=== PATIENT | female | born 1945 | race Caucasian/White ===

== ENCOUNTER 2019-04-17 06:06 | Day surgery (SDC) | payer MEDICARE, OTHER, SELFPAY ==
[2019-04-16 15:06] VITALS: BMI 29.2
--- NOTE | 2019-04-17 06:42 | W.PM.OPSUD ---
Surgery/Procedure H&P Update DATE OF PROCEDURE: April 17, 2019 DATE H&P PERFORMED: 04/15/19 H&P UPDATE INFORMATION: I have reviewed H&P completed within last 30 days and I have examined patient prior to procedure PLANNED PROCEDURE: Operation Date: 04/17/19 07:20 Proposed Procedures p Colonoscopy(Not Applicable) - Felix Barajas MD
[2019-04-17 06:51] VITALS: BP 117/67; PULSE 63; RESP 20; TEMP 36.6; O2SAT 90
--- NOTE | 2019-04-17 07:16 | ANES.PREANE2 ---
Pre-Anesthetic Assessment Pre-Anesthetic Assessment: Height/Weight: Height 1.52 m Weight 68.039 kg Temp Pulse Resp BP Pulse Ox 97.8 F 63 20 H 117/67 90 04/17/19 06:51 04/17/19 06:51 04/17/19 06:51 04/17/19 06:51 04/17/19 06:51 Proposed Procedure: Operation Date: 04/17/19 07:20 Proposed Procedures p Colonoscopy(Not Applicable) - Felix Barajas MD Was Beta Mary Jane taken within 24 hours: Yes Last intake: Intake Last Liquid Date 04/16/19 Last Liquid Time 22:00 Last Solid Date 04/15/19 Last Solid Time 22:00 Social: Social History: No alcohol and No tobacco Exam: Pre-Anes Outpt Exam: alert, oriented x 3, clear to auscultation bilaterally and regular rate & rhythm Airway: Submandibular: WNL Cervical ROM: WNL MP: 2 Dentition: False History/ROS: No significant history except as noted and No significant complaints Pulmonary: Pulmonary: Asthma and Orthopnea CV/HEM: CV/HEM: HTN : : None reported Hepatic: Hepatic: None reported GI: GI: PUD Metabolic: Metabolic: Morbid obesity and Thyroid Musc/skel: Musc/skel: OA/DJD Neuropsych: Neuropsych: Anxiety and Depression Anesthetic Plan: ASA status: 3 Anesthesia: Anesthesia Evaluation and MAC Risk of > 500 ml blood loss (7ml/kg in children): No Data Anesthesia Cardiac Studies: No Data to Display
[2019-04-17 07:43] VITALS: BP 79/48; PULSE 72; RESP 16; TEMP 36.9; O2SAT 97
[2019-04-17] MEDS: sodium chloride 0.9% 1,000 ML 30 ML (07:47)
[2019-04-17 07:51] VITALS: BP 98/47; PULSE 63; RESP 18; O2SAT 100
== END 2019-04-17 08:10 | disposition home or self-care (01) ==
PROVIDERS: PCP Family Medicine; Visit Provider Surgery
PROC: 0DJD8ZZ Inspection of Lower Intestinal Tract, Via Natural or Artificial Opening Endoscopic (ICD-10-PCS; CPT 45378; principal; 2019-04-17 07:20)
DX: R19.4 Change in bowel habit (principal); R10.84 Generalized abdominal pain; R63.4 Abnormal weight loss; K63.89 Other specified diseases of intestine; K57.30 Diverticulosis of large intestine without perforation or abscess without bleeding; K64.8 Other hemorrhoids; Z68.29 Body mass index [BMI] 29.0-29.9, adult; M19.90 Unspecified osteoarthritis, unspecified site; K21.9 Gastro-esophageal reflux disease without esophagitis; I11.0 Hypertensive heart disease with heart failure; I50.9 Heart failure, unspecified; M79.7 Fibromyalgia; G47.30 Sleep apnea, unspecified; Z79.891 Long term (current) use of opiate analgesic; Z82.49 Family history of ischemic heart disease and other diseases of the circulatory system; Z83.3 Family history of diabetes mellitus; Z79.82 Long term (current) use of aspirin
CPT/HCPCS: 12345; 45378; J2704; J7030

== ENCOUNTER 2019-06-15 12:50 | Observation (INO) | payer MEDICARE, OTHER, SELFPAY ==
[2019-06-15] VITALS (7 sets, daily range): BP systolic 118–171; BP diastolic 56–80; PULSE 52–76; RESP 16–18; TEMP 36.4–36.9; O2SAT 93–100; BMI 26.9
--- NOTE | 2019-06-15 13:00 | XR_ITS ---
WS: [id number] XR chest 1V portable [id number] REASON FOR EXAM: cough FINDINGS: This study shows electrodes in the thoracic spine in good position for simulation. The heart is not enlarged there is arteriosclerotic changes in the arch the aorta The lung reis are well aerated. There is no pneumonia, pleural effusion, pulmonary edema, or mass e ffect. The hilum and apices normal. XR/XR chest 1V portable [id number] IMPRESSION: SCS electrodes noted in the thoracic spine in good position Arteriosclerotic changes No pneumonia There is evidence of anchor screws in the head of the right humerus.
--- NOTE | 2019-06-15 13:00 | PC.NURSE ---
Pt stated after triage that she had thyroid cancer with a thyroidectomy 6 weeks ago with plans to start chemo in the morning.
--- NOTE | 2019-06-15 13:01 | ECG_ITS ---
Measurements Intervals [place] Rate: 49 P: -47 SD: 187 QRS: 25 QRSD: 85 T: 51 QT: 464 QTc: [address] DEPRESSION [0.05+ mV ST DEPRESSION] No previous ECG available for comparison Electronically Signed On 06-15-2019 20:04:56 CDT by Ashok Case M.D. [email or web address]
[2019-06-15 13:11] LABS: Basophils % 0.1 %; Eosinophils # 0.1 10^3/uL (0.0-0.8); Eosinophils % 1.1 %; Hematocrit 31.8 % (37.0-47.0); Hemoglobin 10.7 g/dL (11.5-15.3); Lymphocytes # 3.4 10^3/uL (0.8-4.8); Lymphocytes % 38.4 %; Mean Corpuscular HGB Conc 33.6 g/dL (30.0-36.0); Mean Corpuscular Hemoglobin 30.8 pg (28.0-34.0); Mean Corpuscular Volume 91.6 fL (81-99); Mean Platelet Volume 12.2 fL (7.4-10.4); Monocytes # 0.8 10^3/uL (0.2-0.9); Monocytes % 9.5 %; Neutrophils # 4.5 10^3/uL (1.8-7.7); Neutrophils % 50.6 %; Nucleated Red Blood Cells % 0 %; Platelet Count 223 10^3/cmm (130-400); Red Blood Count 3.47 10^6/uL (4.1-5.3); Red Cell Distribution Width 15.9 % (12.1-15.1); White Blood Count 8.8 10^3/uL (4.0-10.0)
--- NOTE | 2019-06-15 13:14 | W.ED.SYNCOPE ---
HPI - Syncope General: Chief Complaint: Syncope Stated Complaint: Syncope Time Seen by Provider: 06/15/19 12:54 History of Present Illness: HPI narrative: Carleen is a nice 74-year-old female who comes in complaining of a syncopal spell. She states that she was playing piano when she suddenly felt lightheaded and started seeing flashing lights. It was noticed that she was leaning to the side and she was caught by friends so she did not hit her head or suffer any injuries. The patient states now she just feels somewhat fatigued. She denies chest pain, shortness of breath, nausea or vomiting, diaphoresis or any other symptoms. Of note the patient has recently had a complete thyroidectomy for thyroid cancer and is due to start chemotherapy tomorrow. Associated symptoms: Deny abdominal pain, chest pain, fever(s), headache(s), nausea or vertigo Review of Systems General: Reports: other (negative unless marked) Const: Reports: fatigue; Denies: fever, chills, body aches, malaise or diaphoresis Eyes: Denies: change in vision or blurry vision ENMT: Denies: throat pain, painful swallowing, hoarseness, ear pain, ear discharge, Change in hearing or nasal discharge Card: Reports: syncope; Denies: chest pain, palpitations, irregular heart rhythm, pre-syncope, shortness of breath on exertion or shortness of breath when lying down Resp: Denies: shortness of breath, productive cough, non-productive cough, wheezing, coughing up blood or chest congestion GI: Denies: abdominal pain, nausea, vomiting, vomiting blood, coffee grounds in vomit, diarrhea, constipation, cramping, blood in stool or black tarry stool : Denies: flank pain, painful urination, urinary frequency, urinary urgency, decreased urine ouput, urinary incontinence or blood in urine Musc: Denies: neck pain, back pain, extremity pain, extremity swelling, joint pain, joint swelling, joint warmth or joint stiffness Skin/Breast: Denies: rash, skin tenderness or yellow skin Neuro: Denies: headache, numbness in extremities, weakness in extremities, changes in sensation, lack of coordination, difficulty walking, dizziness, vertigo or confusion Endo: Denies: excessive thirst, tired all the time, cold intolerance, excessive sweating, flushing or hot flashes Franki/Lymph: Denies: easy bruising, easy bleeding, petechiae or enlarged lymph nodes All/Imm: Denies: hives, throat swelling, tongue swelling, facial swelling or acute wheezing PFSH ED PFSH: Medical History Congestive heart failure Fibromyalgia GERD (gastroesophageal reflux disease) Hypertension Hyponatremia Hypothyroidism Osteoarthritis Rheumatoid arthritis Spinal cord stimulator dysfunction TIA (transient ischemic attack) Surgical History H/O cardiac catheterization H/O hand surgery History of bilateral knee arthroplasty History of bladder surgery History of carpal tunnel release Hx of appendectomy S/P rotator cuff repair Social History Smoking and tobacco status: never smoked Physical Exam Const: COMMON NORMALS: no apparent distress, oriented x3, no limitations, healthy appearing and well nourished EXAM LIMITATIONS: no altered mental status GENERAL APPEARANCE: cooperative, well kempt and well developed ORIENTATION/CONSCIOUSNESS: Yes awake HENMT: COMMON NORMALS: normocephalic, head/scalp atraumatic, hearing grossly normal bilaterally, external ears normal, EAC's normal, external nose normal and moist oral mucous membranes HEAD & SCALP: normal to inspection, normocephalic and atraumatic FACE & SINUS: normal facial exam and face symmetric NOSE: external nose normal and nares normal EXTERNAL EAR: Yes external ears normal EXTERNAL AUDITORY CANAL: EAC's normal MOUTH: oral and palatal mucosa normal and tongue normal Eye: COMMON NORMALS: PERRL, EOMs intact bilaterally, conjunctivae normal and no scleral icterus GENERAL EYE: normal appearance of both eyes and normal light reflex CONJUNCTIVA: Yes conjunctivae normal SCLERA: sclerae normal CORNEA: Yes corneas normal PUPIL: Yes PERRL DIRECT OPHTHALMOSCOPY: Yes normal light reflex Neck/C-Spine: COMMON NORMALS: full ROM, no lymphadenopathy, supple, no meningeal signs and no JVD GENERAL: Yes normal visual inspection and Yes trachea midline CERVICAL SPINE: Yes cervical ROM normal Chest: COMMONS NORMALS: inspection of chest normal and palpation of chest normal Resp: COMMON NORMALS: normal respiratory effort, no retractions, no use of accessory muscles and clear to auscultation bilaterally EFFORT & INSPECTION: Yes able to speak in complete sentences AUSCULTATION: clear to auscultation bilaterally Cardio: COMMON NORMALS: no JVD, regular rate, regular rhythm, S1 normal heart sound, S2 normal heart sound, no gallops, no clicks, no murmurs and no rub JUGULAR VENOUS DISTENTION: no JVD RATE: regular rate RHYTHM: regular rhythm HEART SOUNDS: S1 normal and S2 normal GI: COMMON NORMALS: soft to palpation, non-tender, no hepatosplenomegaly and no masses INSPECTION: Yes normal to inspection PALPATION: Yes soft and Yes no hepatosplenomegaly : COMMON NORMALS: Yes no CVA tenderness BLADDER/KIDNEY EXAM: Yes no CVA tenderness Back/Pelvis: COMMON NORMALS: no CVA tenderness, thoracic and lumbar spine normal to inspection, no thoracic nor lumbar tenderness and thoraco-lumbar ROM normal Extremity: COMMON NORMALS: normal to inspection, full ROM, normal capillary refill, no joint enlargement, no clubbing, cyanosis or edema and no calf tenderness Neuro: COMMON NORMALS: oriented x3, CN's II-XII intact bilaterally, moves all extremities, no focal motor deficits and no sensory deficits noted MENINGEAL SIGNS: Yes no meningeal signs Psych: COMMON NORMALS: mental status grossly normal, thought process normal, cooperative, affect normal, speech normal and activity/motor behavior normal APPEARANCE: Yes well kempt SPEECH: Yes normal speech THOUGHT PROCESS: normal thought process Skin: COMMON NORMALS: no rashes or lesions noted, skin turgor normal, no jaundice, no petechiae and no mottling GENERAL SKIN EXAM: no rashes or lesions noted and turgor normal Course ED course: 1600 -on repeat examination of the patient's abdomen there is no evidence of cellulitis, crepitance, necrotizing fasciitis or otherwise. Vital Signs: Vital signs: Vital Signs Temperature 97.5 F L 06/15/19 12:59 Pulse Rate 60 06/15/19 13:01 Respiratory Rate 16 06/15/19 12:59 Blood Pressure 131/59 06/15/19 13:01 Pulse Oximetry 100 06/15/19 12:59 MDM - Syncope MDM Narrative: Medical decision making narrative: The case was reviewed with Dr. Marcos, he agrees to admit the patient. There is no sign of necrotizing fasciitis, the patient has a normal neurologic exam and she feels back to normal except for fatigue. I do not believe a head CT is indicated at this time. Patient's EKG is abnormal with bradycardia and with the syncope I believe she should be formally ruled out and have an echo. She will need her electrolytes rechecked and further monitoring. Lab Data: Attestation: I reviewed the patient's lab results. Labs: Lab Results 06/15/19 06/15/19 06/15/19 Range/Units 12:00 12:00 12:00 WBC 8.8 (4.0-10.0) 10^3/ uL RBC 3.47 L (4.1-5.3) 10^6/u L Hgb 10.7 L (11.5-15.3) g/dL Hct 31.8 L (37.0-47.0) % MCV 91.6 (81-99) fL MCH 30.8 (28.0-34.0) pg MCHC 33.6 (30.0-36.0) g/dL RDW 15.9 H (12.1-15.1) % Plt Count 223 (130-400) 10^3/c mm MPV 12.2 H (7.4-10.4) fL Neut % (Auto) 50.6 % Lymph % (Auto) 38.4 % Cedar % (Auto) 9.5 % Eos % (Auto) 1.1 % Baso % (Auto) 0.1 % Neut # (Auto) 4.5 (1.8-7.7) 10^3/u L Lymph # (Auto) 3.4 (0.8-4.8) 10^3/u L Cedar # (Auto) 0.8 (0.2-0.9) 10^3/u L Eos # (Auto) 0.1 (0.0-0.8) 10^3/u L Baso # (Auto) 0.0 (0.0-0.1) 10^3/u L Nucleated RBC % (a uto) 0 % Nucleated RBCs # 0.0 /100WBC D-Dimer (0-0.59) ug/mIFE U Sodium 136 (136-145) mmol/L Potassium 3.4 L (3.5-5.1) mmol/L Chloride 97 L (98-107) mmol/L Carbon Dioxide 25 (22-29) mmol/L Anion Gap 17.4 (5-19) BUN 9 (8-23) mg/dL Creatinine 0.8 (0.5-0.9) mg/dL Glucose 99 (65-115) mg/dL Calculated Osmolal ity 278 L (285-295) mOsm/k g Calcium 8.6 (8.5-10.5) mg/dL Magnesium 1.5 L (1.7-2.3) mg/dL Total Bilirubin 0.3 (0.15-1.2) mg/dL AST 43 H (0-32) U/L ALT 41 H (0-33) U/L Alkaline Phosphata se 47 (35-105) IU/L Troponin T Baselin e 20 H (0-10) ng/mL Troponin T 120 Min [place] (0-10) ng/mL Delta Troponin T (0-10) ABS# Total Protein 6.3 L (6.6-8.7) g/dL Albumin 4.0 (3.5-5.2) g/dL Globulin 2.3 (1.3-4.6) g/dL Urine Color (Yellow) Urine Appearance (CLEAR) Urine pH (5-7) Ur Specific Gravit y (1.005-1.030) Urine Protein (Negative) Urine Glucose (UA) (Normal) Urine Ketones (Negative) Urine Blood (Negative) Urine Nitrate (Negative) Urine Bilirubin (NEGATIVE) Urine Urobilinogen (Negative) mg/dL Ur Leukocyte Jillian ase (Negative) Urine RBC (0-2) /hpf Urine WBC (0-5) /hpf Ur Squamous Epith Cells (0-5) Urine Bacteria (NONE) 06/15/19 06/15/19 06/15/19 Range/Units 13:29 13:30 14:52 WBC (4.0-10.0) 10^3/ uL RBC (4.1-5.3) 10^6/u L Hgb (11.5-15.3) g/dL Hct (37.0-47.0) % MCV (81-99) fL MCH (28.0-34.0) pg MCHC (30.0-36.0) g/dL RDW (12.1-15.1) % Plt Count (130-400) 10^3/c mm MPV (7.4-10.4) fL Neut % (Auto) % Lymph % (Auto) % Cedar % (Auto) % Eos % (Auto) % Baso % (Auto) % Neut # (Auto) (1.8-7.7) 10^3/u L Lymph # (Auto) (0.8-4.8) 10^3/u L Cedar # (Auto) (0.2-0.9) 10^3/u L Eos # (Auto) (0.0-0.8) 10^3/u L Baso # (Auto) (0.0-0.1) 10^3/u L Nucleated RBC % (a uto) % Nucleated RBCs # /100WBC D-Dimer 1.95 H (0-0.59) ug/mIFE U Sodium (136-145) mmol/L Potassium (3.5-5.1) mmol/L Chloride (98-107) mmol/L Carbon Dioxide (22-29) mmol/L Anion Gap (5-19) BUN (8-23) mg/dL Creatinine (0.5-0.9) mg/dL Glucose (65-115) mg/dL Calculated Osmolal ity (285-295) mOsm/k g Calcium (8.5-10.5) mg/dL Magnesium (1.7-2.3) mg/dL Total Bilirubin (0.15-1.2) mg/dL AST (0-32) U/L ALT (0-33) U/L Alkaline Phosphata se (35-105) IU/L Troponin T Baselin e (0-10) ng/mL Troponin T 120 Min [place] 17.07 H (0-10) ng/mL Delta Troponin T -2.93 L (0-10) ABS# Total Protein (6.6-8.7) g/dL Albumin (3.5-5.2) g/dL Globulin (1.3-4.6) g/dL Urine Color Yellow (Yellow) Urine Appearance Clear (CLEAR) Urine pH 5 (5-7) Ur Specific Gravit y 1.005 (1.005-1.030) Urine Protein Neg (Negative) Urine Glucose (UA) Norm (Normal) Urine Ketones Negative (Negative) Urine Blood Neg (Negative) Urine Nitrate Negative (Negative) Urine Bilirubin Neg (NEGATIVE) Urine Urobilinogen Norm (Negative) mg/dL Ur Leukocyte Jillian ase Negative (Negative) Urine RBC None (0-2) /hpf Urine WBC Rare (0-5) /hpf Ur Squamous Epith Cells 5-10 H (0-5) Urine Bacteria Trace (NONE) Imaging Data^: CXR: My impression: No acute cardiopulmonary findings. CT Chest: Radiologist's impression: [facility] [address] [place] [address] CT Scan Report Signed Patient: Carleen Garcia Unit #: [id number] : 1945 Age/Sex: 74 / F ADM Date: 06/15/19 Loc: ER Room/Bed: Attending Dr: Ordering Provider/Ordering MD: Monae Turner DO Date of Service: 06/15/19 Procedure(s): CT angio chest w abd pel w con Accession Number(s): [id number] Report Number: [id number] PROCEDURE INFORMATION: Exam: CT Angiography Chest With Contrast Exam date and time: 06/15/2019 2:29 PM Age: 74 years old Clinical indication: Prior surgery; Surgery date: 1-6 months; Surgery type: Thyroid 6 wks ago, gb, appy, bladder, stim; Patient HX: C/O syncope episode; Additional info: Syncope, dyspnea TECHNIQUE: Imaging protocol: Computed tomographic angiography of the chest with intravenous contrast. 3D rendering: MIP and/or 3D reconstructed images were created by the technologist. Radiation optimization: All CT scans at this facility use at least one of these dose optimization techniques: automated exposure control; mA and/or kV adjustment per patient size (includes targeted exams where dose is matched to clinical indication); or iterative reconstruction. Contrast material: OMNI 350; Contrast volume: 95 ml; Contrast route: 20G; COMPARISON: CR XR chest 1V portable [id number] 06/15/2019 1:25 PM RADIATION DOSE METRICS: Total DLP: 1224.55 mGy-cm FINDINGS: Tubes, catheters and devices: There is a neurostimulator device. Pulmonary arteries: There is no pulmonary embolus. Aorta: There are moderate atherosclerotic changes in the aorta. No aneurysm or dissection. Lungs: Nonspecific bibasilar opacity is present, consistent with atelectasis, edema, or pneumonia. Pleural space: Unremarkable. No pneumothorax. No pleural effusion. Heart: There is mild cardiomegaly. Lymph nodes: Unremarkable. No enlarged lymph nodes. Bones/joints: There are old left rib fractures. No acute fracture. There are postoperative changes in the right shoulder. Chronic appearing fracture deformities of T6 and T7 are noted with kyphosis at this level. Soft tissues: Unremarkable. Other findings: There are calcified granulomas. There is also chronic appearing mild height loss of T3. IMPRESSION: 1. There is no pulmonary embolus. 2. Nonspecific bibasilar opacity is present, consistent with atelectasis, edema, or pneumonia. PROCEDURE INFORMATION: Exam: CT Abdomen And Pelvis With Contrast Exam date and time: 06/15/2019 2:29 PM Age: 74 years old Clinical indication: Prior surgery; Surgery date: 1-6 months; Surgery type: Thyroid 6 wks ago, gb, appy, bladder, stim; Patient HX: C/O syncope episode; Additional info: Syncope, dyspnea TECHNIQUE: Imaging protocol: Computed tomography of the abdomen and pelvis with intravenous contrast. Radiation optimization: All CT scans at this facility use at least one of these dose optimization techniques: automated exposure control; mA and/or kV adjustment per patient size (includes targeted exams where dose is matched to clinical indication); or iterative reconstruction. Contrast material: OMNI 350; Contrast volume: 95 ml; Contrast route: 20G; COMPARISON: CR XR chest 1V portable [id number] 06/15/2019 1:25 PM RADIATION DOSE METRICS: Total DLP: 1224.55 mGy-cm FINDINGS: Tubes, catheters and devices: There is a neurostimulator device with the battery pack posterior to the lower lumbar spine. Liver: Unremarkable.No mass. Gallbladder and bile ducts: There has been a cholecystectomy. There is no common bile duct dilation. Pancreas: Normal. No ductal dilation. Spleen: The spleen is normal. An accessory splenule is present. Adrenals: Normal. No mass. Kidneys and ureters: There is no evidence of hydronephrosis. There is no evidence of renal calcifications. Stomach and bowel: Moderate diverticulosis is present in the distal colon. There is no evidence of intestinal perforation or obstruction. There is no evidence of colitis/diverticulitis. Appendix: A normal appendix is identified. Intraperitoneal space: Unremarkable. No free air. No significant fluid collection. Vasculature: The aorta demonstrates moderate atherosclerotic calcification. Lymph nodes: Unremarkable.No enlarged lymph nodes. Bladder: There is nonspecific bladder wall thickening. This may be related to incomplete distention. Reproductive: The uterus, ovaries and adnexa are unremarkable in appearance. Bones/joints: There are moderate facet degenerative changes in the lower lumbar spine. There is chronic appearing mild height loss of L3. No acute bony fracture. Soft tissues: There is a fat-containing umbilical hernia. There is induration of the skin and subcutaneous fat of the lower abdominal wall. The appearance is concerning for cellulitis. No abscess or foreign body. There is subcutaneous emphysema/ gas in the subcutaneous fat. CT/CT angio chest w abd pel w con IMPRESSION: 1. There is induration of the subcutaneous fat and skin of the lower abdominal wall is concerning for cellulitis without abscess. There is subcutaneous emphysema 2. Otherwise, no additional acute intra-abdominal abnormality. No ileus or obstruction. No bowel thickening. No obstructing calculi. Radiation Dose CTDIVOL = (mGy): DLP = 1224.55 1224.55 (mGy-cm) Dictated By: Kady Call Signed By: Kady Call Signed Date/Time: 06/15/191536 DD/ 35 EKG Data^: EKG 1: Attestation: I personally reviewed and interpreted this EKG as follows: EKG interpretation date: 06/15/19 EKG interpretation time: 13:08 Interpretation: Sinus bradycardia with a heart rate of 49 beats a minute, nonspecific ST and T wave changes. EKG 2: Attestation: I personally reviewed and interpreted this EKG as follows: EKG interpretation date: 06/15/19 EKG interpretation time: 15:45 Interpretation: Normal sinus rhythm at 56 beats a minute, baseline artifact, no acute ST-T wave changes. Discharge Plan Discharge Patient Disposition: Placed in Observation Clinical Impression: Syncope Condition: Stable Prescriptions: No Action Vitamin B-12 2,500 mcg Tablet, Sublingual 2,500 mcg SUBLINGUAL DAILY RF: 0 trazodone 50 mg tablet 50 mg PO BEDTIME RF: 0 lisinopril 20 mg tablet 20 mg PO BID RF: 0 alendronate 70 mg tablet 70 mg PO Q7D RF: 0 aspirin 81 mg Tablet,Delayed Release (Dr/Ec) 162 mg PO DAILY RF: 0 pramipexole 0.5 mg tablet See Rx Instructions .ROUTE .COMPLEX RF: 0 alprazolam 0.5 mg tablet 0.5 mg PO BID RF: 0 Vitamin C 250 mg Tablet 250 mg PO DAILY RF: 0 pantoprazole 40 mg tablet,delayed release (DR/EC) 40 mg PO BID RF: 0 hydralazine 50 mg tablet 50 mg PO BID RF: 0 pravastatin 20 mg tablet 20 mg PO DAILY RF: 0 estradiol 0.5 mg tablet 0.5 mg PO DAILY RF: 0 epinephrine 0.3 mg/0.3 mL auto-injector See Rx Instructions .ROUTE .COMPLEX RF: 0 calcitriol 0.25 mcg capsule 0.25 mcg PO DAILY RF: 0 Synthroid 112 mcg tablet 112 mcg PO DAILY RF: 0 cyclobenzaprine 5 mg tablet 5 mg PO BEDTIME RF: 0 Vitamin D3 50 mcg (2,000 unit) Tablet 50 mcg PO DAILY RF: 0 isosorbide mononitrate 30 mg tablet extended release 24 hr 30 mg PO DAILY RF: 0 Referrals: Nae Guerin MD [Primary Care Provider] - Coding Level of Care Code ED Stencil Inspector for Chg Fwd Exam Comprehensive
[2019-06-15 13:34] LABS: Alanine Aminotransferase 41 U/L (0-33); Alkaline Phosphatase 47 IU/L (35-105); Anion Gap 17.4 (5-19); Aspartate Amino Transferase 43 U/L (0-32); Blood Urea Nitrogen 9 mg/dL (8-23); Calcium 8.6 mg/dL (8.5-10.5); Carbon Dioxide 25 mmol/L (22-29); Chloride 97 mmol/L (98-107); Globulin 2.3 g/dL (1.3-4.6); Glucose 99 mg/dL (65-115); Magnesium 1.5 mg/dL (1.7-2.3); Osmolality Calculated 278 mOsm/kg (285-295); Potassium 3.4 mmol/L (3.5-5.1); Sodium 136 mmol/L (136-145); Total Bilirubin 0.3 mg/dL (0.15-1.2); Total Protein 6.3 g/dL (6.6-8.7)
[2019-06-15 13:36] LABS: Troponin(5th) Baseline 20 ng/mL (0-10)
[2019-06-15 13:50] LABS: D Dimer 1.95 ug/mIFEU (0-0.59)
[2019-06-15 13:56] LABS: Bilirubin Urine Neg (NEGATIVE); Blood Urine Neg (Negative); Glucose Urine UA Norm (Normal); Ketones Urine Negative (Negative); Leukocyte Esterase Urine Negative (Negative); Nitrate Urine Negative (Negative); Protein Urine Neg (Negative); Specific Gravity, Urine 1.005 (1.005-1.030); Urine Appearance Clear (CLEAR); Urine Color Yellow (Yellow); Urobilinogen Urine Norm (Negative); pH Urine 5 (5-7)
--- NOTE | 2019-06-15 13:59 | CTR_ITS ---
PROCEDURE INFORMATION: Exam: CT Angiography Chest With Contrast Exam date and time: 06/15/2019 2:29 PM Age: 74 years old Clinical indication: Prior surgery; Surgery date: 1-6 months; Surgery type: Thyroid 6 wks ago, gb, appy, bladder, stim; Patient HX: C/O syncope episode; Additional info: Syncope, dyspnea TECHNIQUE: Imaging protocol: Computed tomographic angiography of the chest with intravenous contrast. 3D rendering: MIP and/or 3D reconstructed images were created by the technologist. Radiation optimization: All CT scans at this facility use at least one of these dose optimization techniques: automated exposure control; mA and/or kV adjustment per patient size (includes targeted exams where dose is matched to clinical indication); or iterative reconstruction. Contrast material: OMNI 350; Contrast volume: 95 ml; Contrast route: 20G; COMPARISON: CR XR chest 1V portable [id number] 06/15/2019 1:25 PM RADIATION DOSE METRICS: Total DLP: 1224.55 mGy-cm FINDINGS: Tubes, catheters and devices: There is a neurostimulator device. Pulmonary arteries: There is no pulmonary embolus. Aorta: There are moderate atherosclerotic changes in the aorta. No aneurysm or dissection. Lungs: Nonspecific bibasilar opacity is present, consistent with atelectasis, edema, or pneumonia. Pleural space: Unremarkable. No pneumothorax. No pleural effusion. Heart: There is mild cardiomegaly. Lymph nodes: Unremarkable. No enlarged lymph nodes. Bones/joints: There are old left rib fractures. No acute fracture. There are postoperative changes in the right shoulder. Chronic appearing fracture deformities of T6 and T7 are noted with kyphosis at this level. Soft tissues: Unremarkable. Other findings: There are calcified granulomas. There is also chronic appearing mild height loss of T3. IMPRESSION: 1. There is no pulmonary embolus. 2. Nonspecific bibasilar opacity is present, consistent with atelectasis, edema, or pneumonia. PROCEDURE INFORMATION: Exam: CT Abdomen And Pelvis With Contrast Exam date and time: 06/15/2019 2:29 PM Age: 74 years old Clinical indication: Prior surgery; Surgery date: 1-6 months; Surgery type: Thyroid 6 wks ago, gb, appy, bladder, stim; Patient HX: C/O syncope episode; Additional info: Syncope, dyspnea TECHNIQUE: Imaging protocol: Computed tomography of the abdomen and pelvis with intravenous contrast. Radiation optimization: All CT scans at this facility use at least one of these dose optimization techniques: automated exposure control; mA and/or kV adjustment per patient size (includes targeted exams where dose is matched to clinical indication); or iterative reconstruction. Contrast material: OMNI 350; Contrast volume: 95 ml; Contrast route: 20G; COMPARISON: CR XR chest 1V portable [id number] 06/15/2019 1:25 PM RADIATION DOSE METRICS: Total DLP: 1224.55 mGy-cm FINDINGS: Tubes, catheters and devices: There is a neurostimulator device with the battery pack posterior to the lower lumbar spine. Liver: Unremarkable.No mass. Gallbladder and bile ducts: There has been a cholecystectomy. There is no common bile duct dilation. Pancreas: Normal. No ductal dilation. Spleen: The spleen is normal. An accessory splenule is present. Adrenals: Normal. No mass. Kidneys and ureters: There is no evidence of hydronephrosis. There is no evidence of renal calcifications. Stomach and bowel: Moderate diverticulosis is present in the distal colon. There is no evidence of intestinal perforation or obstruction. There is no evidence of colitis/diverticulitis. Appendix: A normal appendix is identified. Intraperitoneal space: Unremarkable. No free air. No significant fluid collection. Vasculature: The aorta demonstrates moderate atherosclerotic calcification. Lymph nodes: Unremarkable.No enlarged lymph nodes. Bladder: There is nonspecific bladder wall thickening. This may be related to incomplete distention. Reproductive: The uterus, ovaries and adnexa are unremarkable in appearance. Bones/joints: There are moderate facet degenerative changes in the lower lumbar spine. There is chronic appearing mild height loss of L3. No acute bony fracture. Soft tissues: There is a fat-containing umbilical hernia. There is induration of the skin and subcutaneous fat of the lower abdominal wall. The appearance is concerning for cellulitis. No abscess or foreign body. There is subcutaneous emphysema/ gas in the subcutaneous fat. CT/CT angio chest w abd pel w con IMPRESSION: 1. There is induration of the subcutaneous fat and skin of the lower abdominal wall is concerning for cellulitis without abscess. There is subcutaneous emphysema 2. Otherwise, no additional acute intra-abdominal abnormality. No ileus or obstruction. No bowel thickening. No obstructing calculi. Radiation Dose CTDIVOL = (mGy): DLP = 1224.55~1224.55 (mGy-cm)
[2019-06-15] MEDS: potassium chloride oral liq 20 mEq/15 mL UDC 40 MEQ PO (14:08)
[2019-06-15] MEDS: magnesium sulfate premix 2 GM/50 ML PIGGYBACK IV (14:12)
[2019-06-15 14:17] LABS: Add Urine Culture? No; Bacteria Urine TRACE; WBC Urine RARE /hpf (0-5)
[2019-06-15] MEDS: iohexol 350 mg/mL 100 mL Btl IV (15:13)
[2019-06-15] MEDS: piperacillin-tazobactam 3.375 GM in sodium chloride 0.9% (plus) 50 ML IV (15:56)
[2019-06-15 15:58] LABS: Troponin 5 2HR 17.07 ng/mL (0-10)
[2019-06-15 16:06] LABS: Troponin 5 2HR Delta -2.93 ABS# (0-10)
--- NOTE | 2019-06-15 16:56 | P.HP_ITS ---
Providers/Chief Complaint Primary Care Provider: Nae Guerin MD Chief Complaint: Syncope History of Present Illness Carleen Garcia is a 74 year old female with a past medical history of rheumatoid arthritis (on chronic steroids, Xeljanz, methotrexate), immunocompromise state receives injections, chronic back pain with spinal stimulator in place, history of transient ischemic attack, hypertension, GERD, restless leg, hyperlipidemia, thyroid cancer status post thyroidectomy, fibromyalgia who presents to the emergency room due to syncopal episode. Patient states that she on May 29 had a thyroidectomy for thyroid cancer, she is set to have radiation therapy on June 15. She has been doing well since her surgical procedure, has remained indoors, no sick contacts, no recent fever, no cough, no sick contacts, did travel up to [place] for her surgery. She does report chronic palpitations. No chest pain. No significant cardiac history. No history of heart failure. No history of cardiac catheterization. Did have a history of 3 transient ischemic attacks. No history of lung disease. Notes does not smoke. No calf pain, no calf swelling. No hemoptysis. She does report intermittent lightheadedness, dizziness when changing positions. Patient states that this morning, nothing was out of the ordinary, she went to [employer], in [employer], she was playing the piano, she started to feel uneasy, felt lightheaded, her arms felt weak, bilaterally, she had flashes of color across her visual field, she said to the parents that she did not feel well and for people to pray for her, and that the last thing she remembers. According to secondhand accounts, patient passed out, she was caught by parishioners, she did not fall to the floors, she did not hit her head, no facial droop, no slurring of her speech, no focal neurologic deficits, no seizure-like activities, no urinary or bowel incontinence, the episode lasted about a minute, no post ictal confusion, she had generalized weakness, 2, and felt too weak to get off the floor, until EMS arrived and helped her off the floor. Denies previous episodes of syncope, but does state that she feels lightheaded and dizzy when changing positions at times. Review of Systems Const: Denies: fever, chills, fatigue or malaise Eyes: Reports: change in vision; Denies: blurry vision ENMT: Denies: nasal congestion Card: Reports: palpitations and syncope; Denies: chest pain, edema, shortness of breath on exertion or shortness of breath when lying down Resp: Denies: shortness of breath, productive cough, non-productive cough or wheezing GI: Denies: abdominal pain, nausea, vomiting, vomiting blood, diarrhea, constipation, blood in stool or black tarry stool : Denies: flank pain, painful urination or urinary frequency Musc: Denies: neck pain or back pain Skin/Breast: Denies: rash Neuro: Reports: dizziness; Denies: headache or vertigo Psych: Denies: anxiety or depression Endo: Denies: excessive urination or excessive thirst Medications/Allergies Home Medications Medication Instructions Recorded Confirmed Last Taken Type alendronate 70 mg PO Q7D 06/15/19 06/15/19 06/14/19 History alprazolam 0.5 mg PO BID 06/15/19 06/15/19 06/14/19 History ascorbic acid (vitamin C) [Vitamin 250 mg PO DAILY 06/15/19 06/15/19 Unknown History C] aspirin 162 mg PO DAILY 06/15/19 06/15/19 06/14/19 History calcitriol 0.25 mcg PO DAILY 06/15/19 06/15/19 06/15/19 History cholecalciferol (vitamin D3) 50 mcg PO DAILY 06/15/19 06/15/19 Unknown History [Vitamin D3] cyanocobalamin (vitamin B-12) 2,500 mcg SUBLINGUAL DAILY 06/15/19 06/15/19 Unknown History [Vitamin B-12] cyclobenzaprine 5 mg PO BEDTIME 06/15/19 06/15/19 Unknown History epinephrine See Rx Instructions .ROUTE .COMPLEX 06/15/19 06/15/19 Unknown History estradiol 0.5 mg PO DAILY 06/15/19 06/15/19 06/15/19 History hydralazine 50 mg PO BID 06/15/19 06/15/19 06/15/19 History isosorbide mononitrate 30 mg PO DAILY 06/15/19 06/15/19 06/15/19 History levothyroxine [Synthroid] 112 mcg PO DAILY 06/15/19 06/15/19 06/15/19 History lisinopril 20 mg PO BID 06/15/19 06/15/19 06/15/19 History pantoprazole 40 mg PO BID 06/15/19 06/15/19 06/15/19 History pramipexole See Rx Instructions .ROUTE .COMPLEX 06/15/19 06/15/19 06/14/19 History pravastatin 20 mg PO DAILY 06/15/19 06/15/19 06/14/19 History trazodone 50 mg PO BEDTIME 06/15/19 06/15/19 06/14/19 History Allergies Allergy/AdvReac Type Severity Reaction Status Date / Time codeine Allergy Severe unknown Verified 03/05/19 16:52 aspirin [From [facility]] Allergy ADR-Irritab Verified 06/15/19 12:58 le citric acid Allergy ADR-Irritab Verified 06/15/19 12:58 [From [facility]] le sodium bicarbonate Allergy ADR-Irritab Verified 06/15/19 12:58 [From [facility]] le Tetanus Vaccines and Toxoid Allergy ALGY-Hives Verified 06/15/19 12:58 Additional Medication Information Uses methotrexate weekly, prednisone 5 mg once daily, Xeljanz, immunoglobulin injections PFSH Acute PFSH: Medical History Congestive heart failure Fibromyalgia GERD (gastroesophageal reflux disease) Hypertension Hyponatremia Hypothyroidism Osteoarthritis Rheumatoid arthritis Spinal cord stimulator dysfunction TIA (transient ischemic attack) Surgical History H/O cardiac catheterization H/O hand surgery History of bilateral knee arthroplasty History of bladder surgery History of carpal tunnel release Hx of appendectomy S/P rotator cuff repair Social History Smoking and tobacco status: never smoked Vitals/I&O/Wt Last Vital Signs Temp 97.5 F L 06/15/19 12:59 Pulse 60 06/15/19 13:01 Resp 16 06/15/19 12:59 BP 131/59 06/15/19 13:01 Pulse Ox 100 06/15/19 12:59 Weight last 48 hrs Weight 65.771 kg Physical Exam Const: COMMON NORMALS: no apparent distress and oriented x3 GENERAL APPEARANCE: cooperative and comfortable HENMT: COMMON NORMALS: normocephalic HEAD & SCALP: normocephalic Eye: COMMON NORMALS: PERRL, EOMs intact bilaterally and no papilledema GENERAL EYE: normal appearance of both eyes PUPIL: Yes PERRL DIRECT OPHTHALMOSCOPY: Yes no papilledema Neck/C-Spine: COMMON NORMALS: full ROM, no lymphadenopathy, no JVD and thyroid normal THYROID: thyroid normal Lymph: LYMPHATIC: no lymphadenopathy noted Resp: COMMON NORMALS: normal respiratory effort, no retractions, no use of accessory muscles and clear to auscultation bilaterally AUSCULTATION: clear to auscultation bilaterally Cardio: COMMON NORMALS: no JVD, regular rate, regular rhythm, S1 normal heart sound, S2 normal heart sound, no gallops, no clicks and no murmurs RATE: regular rate RHYTHM: regular rhythm HEART SOUNDS: S1 normal and S2 normal GI: COMMON NORMALS: normal to inspection, nondistended, normoactive bowel shelly nds, soft to palpation, non-tender and no hepatosplenomegaly PALPATION: Yes soft and Yes no hepatosplenomegaly Extremity: COMMON NORMALS: normal to inspection, full ROM and no pedal edema Neuro: COMMON NORMALS: oriented x3, CN's II-XII intact bilaterally, moves all extremities and no focal motor deficits Psych: COMMON NORMALS: mental status grossly normal, thought process normal and cooperative THOUGHT PROCESS: normal thought process Data : 06/15/19 12:00 06/15/19 12:00 A&P Assessment and plan (1) Syncope: -This sounds like a true syncopal episode -Differential includes: Cardiac event, posterior circulation stroke, possible seizure, orthostatic hypotension Plan: -Admit to general medical floors -Serial EKGs, troponins, telemetry monitoring, monitor for chest pain -CT of the head, carotid ultrasound, cardiac echo -Orthostatic vitals -Neurochecks, seizure precautions -Continue aspirin, statin Status: Acute Qualifiers: Syncope type: unspecified Qualified Code(s): R55 - Syncope and collapse (2) Spinal cord stimulator dysfunction: Chronic back pain Status: Acute (3) Thyroid cancer: Status post thyroidectomy, 41 lymph node dissection on levothyroxine the rapy, is set to undergo radiation therapy Status: Acute (4) Rheumatoid arthritis: On Xeljanz, chronic steroids, methotrexate Status: Acute (5) Hypothyroidism: Status: Acute (6) Hypertension: Status: Acute (7) GERD (gastroesophageal reflux disease): Status: Acute (8) Osteoarthritis: Status: Acute (9) TIA (transient ischemic attack): Status: Acute Attestations Medical Necessity Statement*: Patient requires hospitalization, outpatient with observation, for syncopal episode Coding Level of Care Code 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
--- NOTE | 2019-06-15 17:37 | CTR_ITS ---
PROCEDURE INFORMATION: Exam: CT Head Without Contrast Exam date and time: 06/15/2019 5:56 PM Age: 74 years old Clinical indication: Syncope and collapse; Patient HX: Syncope episode TECHNIQUE: Imaging protocol: Computed tomography of the head without contrast. Radiation optimization: All CT scans at this facility use at least one of these dose optimization techniques: automated exposure control; mA and/or kV adjustment per patient size (includes targeted exams where dose is matched to clinical indication); or iterative reconstruction. COMPARISON: No relevant prior studies available. RADIATION DOSE METRICS: Total DLP: 719.81 mGy-cm FINDINGS: Brain: There is diffuse volume loss and periventricular low density compatible with small vessel disease changes. There is a linear hyperdensity in the left frontal lobe compatible with a draining vessel. The patient may have an underlying small vascular malformation. There is no acute hemorrhage, edema or mass effect. Ventricles: Normal. No ventriculomegaly. Bones/joints: Unremarkable. No acute fracture. Sinuses: Visualized sinuses are unremarkable. No fluid levels. Mastoid air cells: Visualized mastoid air cells are well aerated. Soft tissues: Unremarkable. CT/CT head wo con* [id number] IMPRESSION: 1. Prominent vessel in the left frontal lobe may reflect a draining vein from a incidental small vascular malformation. No hemorrhage. No edema or mass effect. 2. No acute intracranial abnormality. Radiation Dose CTDIVOL = (mGy): DLP = 719.81 (mGy-cm)
[2019-06-15] MEDS: atorvastatin 40 mg Tablet PO (18:50)
[2019-06-15] MEDS: enoxaparin 40 mg/0.4 mL Syringe SUBCUT (18:50)
[2019-06-15 18:51] LABS: Ferritin 401 ng/mL (15-150); Iron 84 ug/dL (37-145)
[2019-06-15] MEDS: pantoprazole DR 40 mg Tablet PO (18:51)
[2019-06-15] MEDS: ALPRAZolam 0.5 mg Tablet PO (18:51)
[2019-06-15] MEDS: lisinopril 20 mg Tablet PO (18:51)
[2019-06-15] MEDS: hyDRALAzine 50 mg Tablet PO (18:51)
[2019-06-15 19:00] LABS: Thyroid Stimulating Hormone 0.25 uIU/mL (0.27-4.20)
--- NOTE | 2019-06-15 19:01 | ECG_ITS ---
Measurements Intervals [place] Rate: 56 P: 267 DE: 171 QRS: 24 QRSD: 94 T: 13 QT: 457 QTc: 442 ECTOPIC ATRIAL BRADYCARDIA MODERATE ST DEPRESSION [0.05+ mV ST DEPRESSION] No previous ECG available for comparison Electronically Signed On 06-15-2019 20:17:05 CDT by Ashok Case M.D. [email or web address]
[2019-06-15 19:12] LABS: Percent Saturation 34.4 % (20-50); Total Iron Binding Capacity 244 mcg/dl; Unsaturated Iron Binding 160 ug/dL (112-347)
[2019-06-15 19:23] LABS: Troponin 5 6HR 16.82 ng/mL (0-10)
[2019-06-15 19:24] LABS: Troponin 5 6HR Delta -3.18 ng/L (0-12)
[2019-06-15] MEDS: pramipexole 0.25 mg Tablet 0.75 MG PO (21:15)
[2019-06-15] MEDS: cyclobenzaprine 10 mg Tablet 5 MG PO (21:15)
[2019-06-15] MEDS: trazodone 50 mg Tablet PO (21:15)
[2019-06-16] VITALS (9 sets, daily range): BP systolic 103–144; BP diastolic 59–72; PULSE 69–92; RESP 16–18; TEMP 36.5–36.8; O2SAT 92–95
[2019-06-16 05:55] LABS: Basophils % 0.1 %; Eosinophils # 0.1 10^3/uL (0.0-0.8); Hematocrit 33.7 % (37.0-47.0); Hemoglobin 11.2 g/dL (11.5-15.3); Lymphocytes # 2.6 10^3/uL (0.8-4.8); Lymphocytes % 37.7 %; Mean Corpuscular HGB Conc 33.2 g/dL (30.0-36.0); Mean Corpuscular Hemoglobin 31.3 pg (28.0-34.0); Mean Corpuscular Volume 94.1 fL (81-99); Mean Platelet Volume 11.4 fL (7.4-10.4); Monocytes # 0.5 10^3/uL (0.2-0.9); Monocytes % 7.6 %; Neutrophils # 3.6 10^3/uL (1.8-7.7); Neutrophils % 53.3 %; Nucleated Red Blood Cells % 0 %; Platelet Count 201 10^3/cmm (130-400); Red Blood Count 3.58 10^6/uL (4.1-5.3); White Blood Count 6.8 10^3/uL (4.0-10.0)
--- NOTE | 2019-06-16 06:00 | USCV_ITS ---
Carleen Garcia Age: 74 Gender: F : 1945 Exam Date: 06/16/2019 05:58 Ordering Phys: Stephon Marcos MD Technologist: Mily Swain [place] [facility] [place]: SYNCOPE BP: 136 / 70 HR: 66 Rhythm: Sinus Technical Quality: Adequate MEASUREMENTS (Male / Female) Normal Values 2D ECHO LV Diastolic Diameter PLAX 3.9 cm 4.2 - 5.9 / 3.9 - 5.3 cm LV Systolic Diameter PLAX 2.5 cm LV Chamber Size 2.8 cm IVS Diastolic Thickness 1.1 cm 0.6 - 1.0 / 0.6 - 0.9 cm IVS Systolic Thickness 1.5 cm LVPW Diastolic Thickness 1.5 cm 0.6 - 1.0 / 0.6 - 0.9 cm LVPW Systolic Thickness 1.3 cm RV Chamber Size 2.8 cm LVOT Diameter 2.0 cm LV Ejection Fraction 2D Teich 65.7 % LV Ejection Fraction MOD 2C 36.0 % LV Ejection Fraction 2C AL 45.6 % LA Diameter 4.0 cm LA Width 2.2 cm LA Height 3.8 cm RA Width 3.4 cm RA Height 3.5 cm Aorta at Sinotubular Diameter 2.0 cm M-MODE LV Diastolic Diameter MM 4.0 cm 4.2 - 5.9 / 3.9 - 5.3 cm LV Systolic Diameter MM 2.5 cm LV Ejection Fraction MM Teich 67.7 % IVS Diastolic Thickness MM 1.3 cm 0.6 - 1.0 / 0.6 - 0.9 cm IVS Systolic Thickness MM 1.3 cm LVPW Diastolic Thickness MM 1.1 cm 0.6 - 1.0 / 0.6 - 0.9 cm LVPW Systolic Thickness MM 1.4 cm RV Diastolic Diameter MM 1.4 cm Aortic Annulus Diameter 2.7 cm LA Ao Ratio MM 1.5 MV E Point Septal Separation 0.5 cm DOPPLER AV Peak Velocity 127.0 cm/s LVOT Peak Velocity 92.0 cm/s AV Area Cont Eq vti 2.4 cm squared AV Area Cont Eq pk 2.3 cm squared MV Area PHT 3.1 cm squared Mitral E to A Ratio 1.0 MV E' Velocity 5.0 cm/s Mitral E to MV E' Ratio 19.5 Mitral E to LV E' Lateral Ratio 21.4 Mitral E to LV E' Septal Ratio 18.3 TR Peak Velocity 268.6 cm/s TR Peak Gradient 28.9 mmHg TR Mean Velocity 196.1 cm/s TR Mean Gradient 17.7 mmHg TR Velocity Time Integral 89.0 cm TV Peak E Velocity 56.0 cm/s Right Atrial Pressure 3.0 mmHg Pulmonary Artery Systolic Pressu 31.9 mmHg PV Peak Velocity 64.0 cm/s RV Acceleration Time 0.1 s RV Ejection Time 0.3 s RV AcT/ET 0.3 FINDINGS Left Ventricle Normal left ventricular cavity size. Normal left ventricular systolic function. No regional wall motion abnormalities. Left ventricular ejection fraction is estimated at 67%. Grade I/IV diastolic dysfunction (abnormal relaxation filling pattern), normal to mildly elevated filling pressures. Right Ventricle The right ventricle is normal in size and function. Right Atrium The right atrium is normal in size. Left Atrium The left atrium is normal in size. Mitral Valve Moderately thickened mitral valve. Moderate mitral annular calcification. No mitral valve stenosis. No mitral valve regurgitation. Aortic Valve Moderate aortic valve calcification. No aortic valve stenosis. No aortic valve regurgitation. Tricuspid Valve Structurally normal tricuspid valve without significant stenosis or regurgitation. Pulmonary artery systolic pressure is normal. Pulmonic Valve Structurally normal pulmonic valve without significant stenosis. There is no pulmonic regurgitation. Pericardium Normal pericardium without effusion. Aorta Normal ascending aorta dimension. CONCLUSIONS 1-Normal left ventricular cavity size. Normal left ventricular systolic function. No regional wall motion abnormalities. Left ventricular ejection fraction is estimated at 67%. Grade I/IV diastolic dysfunction (abnormal relaxation filling pattern), normal to mildly elevated filling pressures. 2-Moderately thickened mitral valve. Moderate mitral annular calcification. No mitral valve stenosis. No mitral valve regurgitation. 3-No significant valve abnormalities. 4-There is no pericardial effusion. 5-Pulmonary artery systolic pressure is within normal limits. 6-Right atrial pressure is around 5 mm of mercury. 7-No significant change since the prior echocardiogram study of 08/28/2017. Lydia Florentino MD (Electronically Signed) Final Date: 16 Jun 2019 15:35 S
--- NOTE | 2019-06-16 06:00 | USCV_ITS ---
Carleen Garcia Age: 74 Gender: F : 1945 Exam Date: 06/16/2019 06:13 Ordering Phys: Stephon Marcos MD Technologist: Mily Swain Exam Location: [facility] – [place] Indication: SYNCOPE X 1 Risk Factors: Unknown Previous Vascular Surgery: None Right Brachial BP: / Left Brachial BP: / Right Left Velocity (cm/s) Spectral Plaque Velocity (cm/s) Spectral Plaque Syst/Diast Broadening Syst/Diast Broadening 135.60/19.80 Prox CCA 190.70/ 43.70 119.10/18.70 Hetro Mid CCA 130.00/ 21.70 Hetro 87.10/ 14.30 Hetro Distal CCA 143.00/ 19.90 Hetro 97.00/ 22.10 Hetro Prox ICA 85.50 / 17.30 Hetro 110.30/17.60 Mid ICA 82.70 / 17.30 130.00/37.90 Distal ICA 105.70/ 22.10 110.30 Hetro ECA 98.90 Hetro 1.09 ICA/CCA 0.81 Antegrade Vertebral Antegrade 34.40/ 10.30 cm/s 62.50/ 10.60 cm/s Tri Subclavian Bi 158.8 228.4 0 0 FINDINGS Comparison: none available. Diffuse bilateral scattered calcified plaque and intimal thickening throughout the common carotid arteries and extending through the bifurcation. Mild elevation of evelocity and spectral broadening. CONCLUSIONS Bilateral ICA stenosis less than 50%. Diffuse bilateral atherosclerosis. Dr. Jennifer Covarrubias DO (Electronically Signed) Final Date: 16 Jun 2019 15:13 S
[2019-06-16 06:07] LABS: Alanine Aminotransferase 39 U/L (0-33); Albumin Level 3.7 g/dL (3.5-5.2); Alkaline Phosphatase 47 IU/L (35-105); Anion Gap 16.7 (5-19); Aspartate Amino Transferase 41 U/L (0-32); Blood Urea Nitrogen 10 mg/dL (8-23); Calcium 8.5 mg/dL (8.5-10.5); Carbon Dioxide 25 mmol/L (22-29); Chloride 99 mmol/L (98-107); Cholesterol 195 mg/dL (0-200); Globulin 2.9 g/dL (1.3-4.6); Glucose 95 mg/dL (65-115); HDL Cholesterol 30 mg/dL (60-100); LDL Cholesterol Calculated 129 mg/dL (50-129); Magnesium 2.2 mg/dL (1.7-2.3); Osmolality Calculated 280 mOsm/kg (285-295); Phosphorus 3.1 mg/dL (2.5-4.5); Potassium 3.7 mmol/L (3.5-5.1); Sodium 137 mmol/L (136-145); Total Bilirubin 0.4 mg/dL (0.15-1.2); Total Protein 6.6 g/dL (6.6-8.7); Triglycerides 182 mg/dL (0-150)
[2019-06-16 06:23] LABS: Estmated Average Glucose 117; Hemoglobin A1C 5.7 % (4.0-6.0)
[2019-06-16] MEDS: hyDRALAzine 50 mg Tablet PO (09:07)
[2019-06-16] MEDS: ALPRAZolam 0.5 mg Tablet PO (09:07)
[2019-06-16] MEDS: atorvastatin 40 mg Tablet PO (09:07)
[2019-06-16] MEDS: calcitriol 0.25 mcg Capsule PO (09:07)
[2019-06-16] MEDS: levothyroxine 112 mcg Tablet PO (09:07)
[2019-06-16] MEDS: aspirin 81 mg EC Tablet PO (09:08)
[2019-06-16] MEDS: isosorbide mononitrate ER 30 mg Tablet PO (09:08)
[2019-06-16] MEDS: pantoprazole DR 40 mg Tablet PO (09:08)
[2019-06-16] MEDS: lisinopril 20 mg Tablet PO (09:08)
[2019-06-16] MEDS: ascorbic acid 500 mg Tablet 250 MG PO (09:09)
[2019-06-16] MEDS: estradiol 1 mg Tablet 0.5 MG PO (09:38)
--- NOTE | 2019-06-16 10:32 | PC.CHAP ---
Pastoral Care Encounter/Spiritual Assessment Type of Contact [] Declined billing services manager visit [] Patient/Family/Request visit [] Outpatient visit [] Follow-up visit [] Physician referral [] Code/Alert [] Routine visit [] Staff referral [] Actively dying [] Patient sleeping [] Family support [] [x] Out of room [] Palliative care [] [] Receiving care in room [] Pre-surgical visit [] Trauma [] Long length of stay [] ICU visit [] Other: Relational/Emotional Strength [] Patient feels connected with others/family/visitors/staff [] Distress [] Loneliness/isolation [] Abandonment Spirituality of Patient [] Person of Laureen [] Attends Roman Catholic of their Laureen [] Believes in Prayer [] Reads Bible or Baptist materials [] There are Spiritual issues to be addressed Active Directory Engineer Interventions [] Prayer [] Active listening [] Non-anxious presence [] Spiritual/emotional support [] Crisis/trauma care [] Spiritual counseling [] Bereavement support [] Provided bereavement packet [] Provided Bible/devotional materials [] Provided toy/stuffed animal, coloring book to patient or family member [] Provided Communion [] Anointing/[place] [] Salvation [x] Completed spiritual assessment [] Other: Impact on Illness or Injury [] Angry [] Fearful [] Anxious [] Often cries [] Exhaustion [] Unable to work [] Unable to attend anabaptist [] Unable to walk/stand [] Unable to read [] Unable to drive [] Unable to eat/drink [] Unable to sleep [] Unable to be with family [] Patient intubated [] Other: Summary Patient out for Stress testing Time spent with patient
--- NOTE | 2019-06-16 15:47 | PM.DCS ---
Discharge Providers Date of Admission: 06/15/19 16:41 Date of Discharge: June 16, 2019 Attending Provider at Admission: Stephon Marcos MD Attending Provider at Discharge: Stephon Marcos MD Primary Care Provider: Nae Guerin MD Diagnoses at Discharge Discharge Diagnosis (1) Syncope: Status: Acute Qualifiers: Syncope type: unspecified Qualified Code(s): R55 - Syncope and collapse (2) Spinal cord stimulator dysfunction: Status: Acute (3) Thyroid cancer: Status: Acute (4) Rheumatoid arthritis: Status: Acute (5) Hypothyroidism: Status: Acute (6) Hypertension: Status: Acute (7) GERD (gastroesophageal reflux disease): Status: Acute (8) Osteoarthritis: Status: Acute (9) TIA (transient ischemic attack): Status: Acute Reason for Visit Reason for Visit: Reason For Visit: Syncope Hospital Course Discharge Summary: Carleen Garcia is a 74 year old female with a past medical history of rheumatoid arthritis (on chronic steroids, Xeljanz, methotrexate), immunocompromise state receives injections, chronic back pain with spinal stimulator in place, history of transient ischemic attack, hypertension, GERD, restless leg, hyperlipidemia, thyroid cancer status post thyroidectomy, fibromyalgia who presents to the emergency room due to syncopal episode. Patient states that she on May 29 had a thyroidectomy for thyroid cancer, she is set to have radiation therapy on June 15. She has been doing well since her surgical procedure, has remained indoors, no sick contacts, no recent fever, no cough, no sick contacts, did travel up to [place] for her surgery. She does report chronic palpitations. No chest pain. No significant cardiac history. No history of heart failure. No history of cardiac catheterization. Did have a history of 3 transient ischemic attacks. No history of lung disease. Notes does not smoke. No calf pain, no calf swelling. No hemoptysis. She does report intermittent lightheadedness, dizziness when changing positions. Patient states that this morning, nothing was out of the ordinary, she went to baptism, in baptism, she was playing the piano, she started to feel uneasy, felt lightheaded, her arms felt weak, bilaterally, she had flashes of color across her visual field, she said to the parents that she did not feel well and for people to pray for her, and that the last thing she remembers. According to secondhand accounts, patient passed out, she was caught by parishioners, she did not fall to the floors, she did not hit her head, no facial droop, no slurring of her speech, no focal neurologic deficits, no seizure-like activities, no urinary or bowel incontinence, the episode lasted about a minute, no post ictal confusion, she had generalized weakness, 2, and felt too weak to get off the floor, until EMS arrived and helped her off the floor. Denies previous episodes of syncope, but does state that she feels lightheaded and dizzy when changing positions at times. Patient was admitted syncopal event, her orthostatics were within normal limits, patient's head CT patient's was negative for intracranial hemorrhage or acute CVA, carotid ultrasound bilateral ICA stenosis less than 50%; cardiac echo showed left ventricular ejection fraction 67%, grade 1 out of 4 diastolic dysfunction, no significant wall motion abnormalities. CTA of the chest negative for pulmonary embolism. Patient remained neurologically intact, no significant seizure-like episodes. Patient's telemetry monitoring did show 5-6 beats of nonsustained V. tach, patient was asymptomatic during that time. Patient was discharged on a 30-day event monitor, with close follow-up with Dr. Costello in 1 week, with a follow-up with primary care provider in 1 month. Patient was advised that if she were to have chest pain, palpitations, lightheadedness, dizziness, or another syncopal episode to come back to the emergency room. Physical Exam Const: COMMON NORMALS: no apparent distress and oriented x3 HENMT: COMMON NORMALS: normocephalic HEAD & SCALP: normocephalic Neck/C-Spine: COMMON NORMALS: no JVD Resp: COMMON NORMALS: normal respiratory effort, no retractions, no use of accessory muscles and clear to auscultation bilaterally AUSCULTATION: clear to auscultation bilaterally Cardio: COMMON NORMALS: no JVD, regular rate, regular rhythm, S1 normal heart sound and S2 normal heart sound RATE: regular rate RHYTHM: regular rhythm HEART SOUNDS: S1 normal and S2 normal GI: COMMON NORMALS: normal to inspection, nondistended, normoactive bowel sounds, soft to palpation, non-tender, no hepatosplenomegaly, no masses and no bruits PALPATION: Yes soft and Yes no hepatosplenomegaly Extremity: COMMON NORMALS: normal capillary refill, no clubbing, cyanosis or edema, no calf tenderness and no pedal edema Neuro: COMMON NORMALS: oriented x3 Psych: COMMON NORMALS: mental status grossly normal Discharge Data Data Completed and Pending: Completed Studies During Hospitalization Category Date Time Status CT angio chest w abd pel w con Stat Cat Scan 06/15/19 13:[address] head wo con* [id number] Urgent Cat Scan 06/15/19 17:37 Completed XR chest 1V raji ble [id number] Stat Exams 06/15/19 13:00 Completed CV carotid duplex BI* [id number] Routine Ultrasound 06/16/19 06:00 Completed CV echo complete* [id number] Routine Ultrasound 06/16/19 06:00 Completed Pending at discharge Category Date Time Status Complete Blood Co unt w/Auto AM LABS Lab 06/17/19 04:00 Ordered Complete Blood Co unt w/Auto AM LABS Lab 06/18/19 04:00 Ordered Comprehensive Met abolic Panel AM LA BS Lab 06/17/19 04:00 Ordered Comprehensive Met abolic Panel AM LA BS Lab 06/18/19 04:00 Ordered Magnesium AM LABS Lab 06/17/19 04:00 Ordered Magnesium AM LABS Lab 06/18/19 04:00 Ordered Phosphorus AM LAB S Lab 06/17/19 04:00 Ordered Phosphorus AM LAB S Lab 06/18/19 04:00 Ordered Labs from last 24 hours 06/16/19 06/16/19 06/16/19 05:31 05:31 05:31 WBC RBC Hgb Hct MCV MCH MCHC RDW Plt Count MPV Neut % (Auto) Lymph % (Auto) [place] % (Auto) Eos % (Auto) Baso % (Auto) Reticulocyte % (Au to) Neut # (Auto) Lymph # (Auto) [place] # (Auto) Eos # (Auto) Baso # (Auto) Nucleated RBC % (a uto) Nucleated RBCs # Sodium 137 Potassium 3.7 Chloride 99 Carbon Dioxide 25 Anion Gap 16.7 BUN 10 Creatinine 0.9 Glucose 95 Estimat Average Gl ucose 117 Hemoglobin A1c 5.7 Calculated Osmolal ity 280 L Calcium 8.5 Phosphorus 3.1 Magnesium 2.2 Iron TIBC % Saturation Unsat Iron Binding Ferritin Total Bilirubin 0.4 AST 41 H ALT 39 H Alkaline Phosphata se 47 Troponin I 6 Hour Troponin I Hi Sens Del Troponin T 120 Min [place] Troponin T Total Protein 6.6 Albumin 3.7 Globulin 2.9 Triglycerides 182 H Cholesterol 195 LDL Cholesterol, C alc 129 HDL Cholesterol 30 L LDL/HDL Ratio 4.30 H Cholesterol/HDL Ra blank 6.50 H TSH 06/16/19 06/15/19 06/15/19 05:31 18:58 14:52 WBC 6.8 RBC 3.58 L Hgb 11.2 L Hct 33.7 L MCV 94.1 MCH 31.3 MCHC 33.2 RDW 16.0 H Plt Count 201 MPV 11.4 H Neut % (Auto) 53.3 Lymph % (Auto) 37.7 [place] % (Auto) 7.6 Eos % (Auto) 1.0 Baso % (Auto) 0.1 Reticulocyte % (Au to) Neut # (Auto) 3.6 Lymph # (Auto) 2.6 [place] # (Auto) 0.5 Eos # (Auto) 0.1 Baso # (Auto) 0.0 Nucleated RBC % (a uto) 0 Nucleated RBCs # 0.0 Sodium Potassium Chloride Carbon Dioxide Anion Gap BUN Creatinine Glucose Estimat Average Gl ucose Hemoglobin A1c Calculated Osmolal ity Calcium Phosphorus Magnesium Iron TIBC % Saturation Unsat Iron Binding Ferritin Total Bilirubin AST ALT Alkaline Phosphata se Troponin I 6 Hour 16.82 H Troponin I Hi Sens Del -3.18 L Troponin T 120 Min [place] 17.07 H Delta Troponin T -2.93 L Total Protein Albumin Globulin Triglycerides Cholesterol LDL Cholesterol, C alc HDL Cholesterol LDL/HDL Ratio Cholesterol/HDL Ra blank TSH 06/15/19 06/15/19 06/15/19 12:00 12:00 12:00 WBC RBC Hgb Hct MCV MCH MCHC RDW Plt Count MPV Neut % (Auto) Lymph % (Auto) [place] % (Auto) Eos % (Auto) Baso % (Auto) Reticulocyte % (Au to) 2.1300 Neut # (Auto) Lymph # (Auto) [place] # (Auto) Eos # (Auto) Baso # (Auto) Nucleated RBC % (a uto) Nucleated RBCs # Sodium Potassium Chloride Carbon Dioxide Anion Gap BUN Creatinine Glucose Estimat Average Gl ucose Hemoglobin A1c Calculated Osmolal ity Calcium Phosphorus Magnesium Iron 84 TIBC 244 % Saturation 34.4 Unsat Iron Binding 160 Ferritin 401 H Total Bilirubin AST ALT Alkaline Phosphata se Troponin I 6 Hour Troponin I Hi Sens Del Troponin T 120 Min [place] Troponin T Total Protein Albumin Globulin Triglycerides Cholesterol LDL Cholesterol, C alc HDL Cholesterol LDL/HDL Ratio Cholesterol/HDL Ra blank TSH 0.25 L Vitals: Last Vital Signs Temp 98.0 F 06/16/19 11:30 Pulse 89 06/16/19 14:15 Resp 16 06/16/19 11:30 BP 103/59 06/16/19 11:30 Pulse Ox 95 06/16/19 14:15 Discharge Plan Discharge Patient Disposition: Home, Self-Care Condition: Stable Prescriptions: New aspirin 81 mg Tablet,Delayed Release (Dr/Ec) 81 mg PO DAILY 30 Days Qty: 30 RF: 0 Continued Vitamin B-12 2,500 mcg Tablet, Sublingual 2,500 mcg SUBLINGUAL DAILY RF: 0 trazodone 50 mg tablet 50 mg PO BEDTIME RF: 0 lisinopril 20 mg tablet 20 mg PO BID RF: 0 alendronate 70 mg tablet 70 mg PO Q7D RF: 0 pramipexole 0.5 mg tablet See Rx Instructions .ROUTE .COMPLEX RF: 0 alprazolam 0.5 mg tablet 0.5 mg PO BID RF: 0 Vitamin C 250 mg Tablet 250 mg PO DAILY RF: 0 pantoprazole 40 mg tablet,delayed release (DR/EC) 40 mg PO BID RF: 0 hydralazine 50 mg tablet 50 mg PO BID RF: 0 pravastatin 20 mg tablet 20 mg PO DAILY RF: 0 estradiol 0.5 mg tablet 0.5 mg PO DAILY RF: 0 epinephrine 0.3 mg/0.3 mL auto-injector See Rx Instructions .ROUTE .COMPLEX RF: 0 calcitriol 0.25 mcg capsule 0.25 mcg PO DAILY RF: 0 Synthroid 112 mcg tablet 112 mcg PO DAILY RF: 0 cyclobenzaprine 5 mg tablet 5 mg PO BEDTIME RF: 0 Vitamin D3 50 mcg (2,000 unit) Tablet 50 mcg PO DAILY RF: 0 isosorbide mononitrate 30 mg tablet extended release 24 hr 30 mg PO DAILY RF: 0 Discontinued aspirin 81 mg Tablet,Delayed Release (Dr/Ec) 162 mg PO DAILY RF: 0 Discharge Orders: Discharge Order (Routine); Ordered 06/16/19 Ordered By: Stephon Marcos Other Ambulatory Orders: [place] 30 day event monitor (Routine) Timeframe: 1 Day Facility: [facility] - Location: Cardiac Diagnostic Laboratory Ordered By: Stephon Marcos Referrals: Nae Guerin MD [Primary Care Provider] - 06/23/19 10:30 am Lydia Florentino MD [Physician] - 06/23/19 1:00 pm Discharge Diet: Cardiac Discharge Activity: Resume usual activity Patient Instructions: Syncope (DC) Activity Restrictions/Additional Instructions: -Please follow-up with Dr. Costello in 1 week -If you feel lightheaded or dizzy please come back to the emergency room Discharge Attestations Time Spent in Discharge Care*: less than 30 min Quality Metrics Clinical Quality Measures During this hospital stay, did patient experience: None Coding Level of Care Code Acute Furniture Duster for Chg Fwd Exam Comprehensive Diagnoses Syncope R55 Syncope type: unspecified Spinal cord stimulator dysfunction T85.192A Thyroid cancer C73 Rheumatoid arthritis M06.9 Hypothyroidism E03.9 Hypertension I10 GERD (gastroesophageal reflux disease) K21.9 Osteoarthritis M19.90 TIA (transient ischemic attack) G45.9
== END 2019-06-16 17:30 | disposition home or self-care (01) ==
LOC: ER 17:01 → MEDSURG 17:18
PROVIDERS: Admitting Provider Family Medicine; Emergency Provider Emergency Medicine; PCP Family Medicine; Visit Provider Family Medicine
DX: R55 Syncope and collapse (principal); T85.192A Other mechanical complication of implanted electronic neurostimulator of spinal cord electrode (lead), initial encounter; C73 Malignant neoplasm of thyroid gland; M06.9 Rheumatoid arthritis, unspecified; E03.9 Hypothyroidism, unspecified; K21.9 Gastro-esophageal reflux disease without esophagitis; M19.90 Unspecified osteoarthritis, unspecified site; G45.9 Transient cerebral ischemic attack, unspecified; Z79.52 Long term (current) use of systemic steroids; E78.5 Hyperlipidemia, unspecified; M79.7 Fibromyalgia; Z79.82 Long term (current) use of aspirin; I11.0 Hypertensive heart disease with heart failure; I50.9 Heart failure, unspecified
CPT/HCPCS: 12345; 36415; 70450; 71045; 71275; 74177; 80053; 80061; 81001; 82728; 83036; 83540; 83550; 83735; 84100; 84443; 84484; 85025; 85045; 85378; 93005; 93306; 93880; 96365; 96367; 96372; 97110; 97161; 97165; 97530; 99284; 99285; G0378; J1650; J2543; J3370; J3475; J7050; J8499; Q9967

== ENCOUNTER 2019-08-06 06:00 | Outpatient (RCR) | payer MEDICARE, OTHER, SELFPAY | END 2019-09-05 23:59 | disposition home or self-care (01) | LOC: WST 06:00 | PROVIDERS: PCP Family Medicine; Referring Provider Otolaryngology; Visit Provider Family Medicine | DX: E89.0 Postprocedural hypothyroidism (principal); R49.0 Dysphonia | CPT/HCPCS: 92507; 92524; 92526; 92610 ==

== ENCOUNTER 2019-09-06 06:00 | Outpatient (RCR) | payer MEDICARE, OTHER, SELFPAY | END 2019-10-06 23:59 | disposition home or self-care (01) | LOC: WST 06:00 | PROVIDERS: PCP Family Medicine; Referring Provider Otolaryngology; Visit Provider Family Medicine | DX: E89.0 Postprocedural hypothyroidism (principal); R49.0 Dysphonia | CPT/HCPCS: 92507; 92524; 92612 ==

== ENCOUNTER 2019-10-01 10:26 | Outpatient (CLI) | payer MEDICARE, OTHER, SELFPAY ==
--- NOTE | 2019-10-01 10:35 | FL_ITS ---
WS: [id number] MODIFIED BARIUM SWALLOW TECHNIQUE: Modified barium swallow with speech therapy using multiple consistencies. FLUOROSCOPY TIME: 2.6 minutes. CLINICAL INFORMATION: Other dysphagia COMPARISON: None. FINDINGS: Multiple consistencies utilized. Small amount of penetration with 10 cc nectar and thin liquid. No fr ank aspiration. No difficulties with barium tablet. Mild esophageal dysmotility is partially visualiz ed. FL/FL barium swallow modifd [id number] IMPRESSION: 1. Small amount of penetration with thin cc nectar and thin liquid. No pawan a spiration. 2. Mild esophageal dysmotility in the distal esophagus
== END 2019-10-01 10:27 | disposition home or self-care (01) ==
LOC: RAD 10:28
PROVIDERS: PCP Family Medicine; Visit Provider Family Medicine
DX: R13.19 Other dysphagia (principal)
CPT/HCPCS: 74230; 92611

== ENCOUNTER 2019-10-07 06:00 | Outpatient (RCR) | payer MEDICARE, OTHER, SELFPAY | END 2019-11-05 23:59 | disposition home or self-care (01) | LOC: WST 06:00 | PROVIDERS: PCP Family Medicine; Referring Provider Otolaryngology; Visit Provider Family Medicine | DX: R49.0 Dysphonia (principal); E89.0 Postprocedural hypothyroidism | CPT/HCPCS: 92507 ==

== ENCOUNTER 2019-11-06 06:00 | Outpatient (RCR) | payer MEDICARE, OTHER, SELFPAY | END 2019-12-06 23:59 | disposition home or self-care (01) | LOC: WST 06:00 | PROVIDERS: PCP Family Medicine; Referring Provider Otolaryngology; Visit Provider Family Medicine | DX: R49.0 Dysphonia (principal) | CPT/HCPCS: 92507 ==

== ENCOUNTER 2019-11-20 14:41 | Outpatient (CLI) | payer MEDICARE, OTHER, SELFPAY ==
--- NOTE | 2019-11-20 14:49 | MM_ITS ---
WS: [id number] BILATERAL SCREENING DIGITAL MAMMOGRAM WITH CAD HISTORY: SCREENING COMPARISON: 08/01/2017 and 07/12/2017 Bilateral CC and MLO views submitted. Computer aided detection analyzed. Breast composition: There are scattered areas of fibroglandular density. No suspicious masses, microc alcifications or architectural distortion. Vascular and scattered benign-appearing calcifications in each breast. Slight increase in number of the calcifications. MM/[place] [id number] IMPRESSION: BI-RADS: 2-Benign FOLLOW UP: 1 Year Follow-up
== END 2019-11-20 14:42 | disposition home or self-care (01) ==
LOC: RADSHAW 14:47
PROVIDERS: PCP Family Medicine; Visit Provider Family Medicine
DX: Z12.31 Encounter for screening mammogram for malignant neoplasm of breast (principal)
CPT/HCPCS: 77067

== ENCOUNTER 2019-12-07 06:00 | Outpatient (RCR) | payer MEDICARE, OTHER, SELFPAY | END 2020-01-05 23:59 | disposition home or self-care (01) | LOC: WST 06:00 | PROVIDERS: PCP Family Medicine; Referring Provider Otolaryngology; Visit Provider Family Medicine | DX: R49.0 Dysphonia (principal); E89.0 Postprocedural hypothyroidism | CPT/HCPCS: 92507 ==

== ENCOUNTER 2020-01-06 06:00 | Outpatient (RCR) | payer MEDICARE, OTHER, SELFPAY | END 2020-02-05 23:59 | disposition home or self-care (01) | LOC: WST 06:00 | PROVIDERS: PCP Family Medicine; Referring Provider Otolaryngology; Visit Provider Family Medicine | DX: R49.0 Dysphonia (principal) | CPT/HCPCS: 92507 ==

== ENCOUNTER → 2021-05-19 14:13 | Outpatient (BNVA) | payer MEDICARE, OTHER, SELFPAY | PROVIDERS: PCP Family Medicine; Visit Provider Internal Medicine Cardiovascular Disease | DX: I11.0 Hypertensive heart disease with heart failure (principal); I50.32 Chronic diastolic (congestive) heart failure; I47.1 Supraventricular tachycardia; I35.0 Nonrheumatic aortic (valve) stenosis; I65.23 Occlusion and stenosis of bilateral carotid arteries; M06.9 Rheumatoid arthritis, unspecified; E03.9 Hypothyroidism, unspecified; Z79.82 Long term (current) use of aspirin; Z86.73 Personal history of transient ischemic attack (TIA), and cerebral infarction without residual deficits | CPT/HCPCS: 93005; 99214; 99215 ==

== ENCOUNTER → 2021-06-08 12:55 | Outpatient (BNVA) | payer MEDICARE, OTHER, SELFPAY | PROVIDERS: PCP Family Medicine; Visit Provider Internal Medicine Cardiovascular Disease | DX: I47.1 Supraventricular tachycardia (principal); I50.32 Chronic diastolic (congestive) heart failure; I49.1 Atrial premature depolarization; I48.91 Unspecified atrial fibrillation | CPT/HCPCS: 93229 ==

== ENCOUNTER 2021-06-13 05:48 | Outpatient (CLI) | payer MEDICARE, OTHER, SELFPAY ==
--- NOTE | 2021-06-13 | USCV_ITS ---
Carleen Garcia Age: 76 Gender: F : 1945 Exam Date: 06/13/2021 06:31 Ordering Phys: Ashok Case MD ([email or web address]) Technologist: Mily Swain [place] [facility] [place]: CHF BP: 136 / 72 HR: 71 Rhythm: Sinus Technical Quality: Adequate MEASUREMENTS (Male / Female) Normal Values 2D ECHO LV Diastolic Diameter PLAX 3.8 cm 4.2 - 5.9 / 3.9 - 5.3 cm LV Systolic Diameter PLAX 2.2 cm LV Chamber Size 3.0 cm IVS Diastolic Thickness 1.0 cm 0.6 - 1.0 / 0.6 - 0.9 cm IVS Systolic Thickness 1.3 cm LVPW Diastolic Thickness 1.0 cm 0.6 - 1.0 / 0.6 - 0.9 cm LVPW Systolic Thickness 1.1 cm RV Chamber Size 2.9 cm LVOT Diameter 2.0 cm LV Ejection Fraction 2D Teich 73.7 % LV Ejection Fraction MOD 2C 60.7 % LV Ejection Fraction 2C AL 54.3 % LA Diameter 3.5 cm LA Width 3.9 cm LA Height 5.7 cm RA Width 2.8 cm RA Height 3.9 cm Aorta at Sinotubular Diameter 1.9 cm IVC Diameter 1.5 cm M-MODE Aortic Annulus Diameter 3.0 cm LA Ao Ratio MM 1.5 MV E Point Septal Separation 0.4 cm DOPPLER AV Peak Velocity 152.0 cm/s LVOT Peak Velocity 92.0 cm/s AV Area Cont Eq vti 2.1 cm squared AV Area Cont Eq pk 2.0 cm squared MV Area PHT 3.9 cm squared Mitral E to A Ratio 1.2 MV E' Velocity 67.0 cm/s Mitral E to MV E' Ratio 17.9 Mitral E to LV E' Lateral Ratio 18.7 Mitral E to LV E' Septal Ratio 17.1 TR Peak Velocity 253.8 cm/s TR Peak Gradient 25.8 mmHg TR Mean Velocity 192.8 cm/s TR Mean Gradient 16.4 mmHg TR Velocity Time Integral 87.7 cm TV Peak E Velocity 70.0 cm/s Right Atrial Pressure 3.0 mmHg Pulmonary Artery Systolic Pressu 28.8 mmHg PV Peak Velocity 63.0 cm/s RV Acceleration Time 0.1 s RV Ejection Time 0.3 s RV AcT/ET 0.4 FINDINGS Left Ventricle Normal left ventricular size and systolic function, EF 66 %. Mild left ventricular hypertrophy. No regional wall motion abnormalities. Grade III/IV diastolic dysfunction (restrictive filling pattern), severely elevated filling pressures. Right Ventricle The right ventricle is normal in size and function. Right Atrium The right atrium is normal in size. Left Atrium Moderately increased left atrial size. Mitral Valve Moderate mitral annular calcification. Mild mitral valve regurgitation. Aortic Valve Thickened aortic valve. Tricuspid Valve Mild tricuspid valve regurgitation. Pulmonic Valve Structurally normal pulmonic valve without significant stenosis. There is no pulmonic regurgitation. Pericardium Normal pericardium without effusion. Aorta Plaque seen in the ascending aorta. CONCLUSIONS Normal left ventricular size and systolic function, EF 66 %. Mild left ventricular hypertrophy. No regional wall motion abnormalities. Grade III/IV diastolic dysfunction (restrictive filling pattern), severely elevated filling pressures. Moderately increased left atrial size. Moderate mitral annular calcification. Mild mitral valve regurgitation. Thickened aortic valve. Mild tricuspid valve regurgitation. Plaque seen in the ascending aorta. There is no pericardial effusion. There are no intracardiac masses. Compared to the study from 06/16/2019, there is some worsening of the diastolic dysfunction Dr Ashok Case MD FAC (Electronically Signed) Final Date: 13 Jun 2021 21:16 S
--- NOTE | 2021-06-13 06:15 | USCV_ITS ---
Carleen Garcia Age: 76 Gender: F : 1945 Exam Date: 06/13/2021 06:09 Ordering Phys: Ashok Case MD ([email or web address]) Technologist: Mily Swain [place] [facility] [place]: Recheck on CCa Stenosis Risk Factors: Unknown Previous Vascular Surgery: None Right Brachial BP: / Left Brachial BP: / Right Left Velocity (cm/s) Spectral Plaque Velocity (cm/s) Spectral Plaque Syst/Diast Broadening Syst/Diast Broadening 56.50/ 7.90 Prox CCA 73.80 / 15.40 78.90/ 11.80 Mid CCA 83.40 / 15.60 50.60/ 9.90 Distal CCA 69.30 / 12.70 67.70/ 23.00 Prox ICA 100.00/ 18.30 102.50/23.20 Mid ICA 102.80/ 23.10 94.30/ 22.30 Distal ICA 112.50/ 27.90 79.50 ECA 69.20 1.30 ICA/CCA 1.35 Antegrade Vertebral Antegrade 54.00/ 11.10 cm/s 55.70/ 12.50 cm/s Bi Subclavian Bi 85.80 100.0 0 FINDINGS Moderate heterogeneous plaques at the bifurcations and proximal internal carotid arteries bilaterally. Intimal thickening and minimal plaques in the common carotid arteries bilaterally. Antegrade flow in the vertebral arteries bilaterally. Normal Doppler flow velocities in the external carotid, vertebral and subclavian arteries bilaterally CONCLUSIONS Moderate heterogeneous plaques at the bifurcations and proximal internal carotid arteries bilaterally, suggesting less than 50% stenosis. Intimal thickening and minimal plaques in the common carotid arteries bilaterally. No significant stenosis in the external carotid, vertebral and subclavian arteries bilaterally, based on the above findings Compared to the study from 06/16/2019, there is a significant drop in the Doppler velocities at the subclavian arteries, could be related to the change in hemodynamics Dr Ashok Case MD [facility] (Electronically Signed) Final Date: 13 Jun 2021 21:26 S
== END 2021-06-13 05:49 | disposition home or self-care (01) ==
LOC: RAD 05:49
PROVIDERS: PCP Family Medicine; Visit Provider Internal Medicine Cardiovascular Disease
DX: I77.9 Disorder of arteries and arterioles, unspecified (principal); I65.29 Occlusion and stenosis of unspecified carotid artery; R55 Syncope and collapse; I51.7 Cardiomegaly; I50.30 Unspecified diastolic (congestive) heart failure
CPT/HCPCS: 93306; 93880

== ENCOUNTER 2021-08-03 14:27 | Outpatient (CLI) | payer MEDICARE, OTHER, SELFPAY ==
[2021-08-03 15:26] LABS: Basophils % 0.1 %; Eosinophils # 0.1 10^3/uL (0.0-0.8); Eosinophils % 0.6 %; Hematocrit 35.9 % (37.0-47.0); Hemoglobin 12.1 g/dL (11.5-15.3); Lymphocytes % 15.6 %; Mean Corpuscular HGB Conc 33.7 g/dL (30.0-36.0); Mean Corpuscular Hemoglobin 28.9 pg (28.0-34.0); Mean Corpuscular Volume 85.9 fl (81-99); Mean Platelet Volume 11.9 fL (7.4-10.4); Monocytes # 1.2 10^3/uL (0.2-0.9); Monocytes % 9.5 %; Neutrophils # 9.31 10^3/uL (1.8-7.7); Neutrophils % 73.9 %; Nucleated Red Blood Cells % 0 %; Platelet Count 225 10^3/cmm (130-400); Red Blood Count 4.18 10^6/uL (4.1-5.3); Red Cell Distribution Width 15.2 % (12.1-15.1); White Blood Count 12.6 10^3/uL (4.0-10.0)
[2021-08-03 15:50] LABS: Anion Gap 15.3 (5-19); Blood Urea Nitrogen 10 mg/dL (8-23); Calcium 8.9 mg/dL (8.5-10.5); Carbon Dioxide 22 mmol/L (22-29); Chloride 101 mmol/L (98-107); Glucose 96 mg/dL (65-115); Osmolality Calculated 279 mOsm/kg (285-295); Potassium 3.3 mmol/L (3.5-5.1); Sodium 135 mmol/L (136-145)
== END 2021-08-03 14:28 | disposition home or self-care (01) ==
LOC: LAB 14:33
PROVIDERS: PCP Family Medicine; Visit Provider Internal Medicine Cardiovascular Disease
DX: I48.91 Unspecified atrial fibrillation (principal); I47.1 Supraventricular tachycardia; R55 Syncope and collapse
CPT/HCPCS: 80048; 85025

== ENCOUNTER 2021-10-20 08:41 | Outpatient (CLI) | payer MEDICARE, OTHER, SELFPAY ==
--- NOTE | 2021-10-20 08:49 | NM_ITS ---
WS: [id number] NUCLEAR MEDICINE GASTRIC STUDY CLINICAL INFORMATION: ABDOMINAL PAIN/GASTROPARESIS TECHNIQUE: Following oral ingestion of cooked egg mixed with 1.1 mCi technetium 99m sulfur colloid, a nterior images of the stomach were obtained over the course of 90 minutes. Activity curve was perform ed over the course of 90 minutes with linear regression analysis. COMPARISON: None. FINDINGS: Oral ingestion of cooked egg mixture. 29% emptying at 120 minutes. Only 12% emptying at 60 minutes. T1 half: 212 minutes (Normal 45-110 minutes) NM/[place] gastric [place] st [id number] IMPRESSION: Findings compatible with delayed gastric emptying. *Normal median T1 half 90 minutes for solid egg meal (45-110 minutes). Delayed gastric retention is defined as 90% retained at 1 hour, 60% at 2 hour s, 30% at 3 hours, and 10% at 4 hours (normal percent gastric retention is 37-9 0% at 1 hour, 30-60% at 2 hours, and 0-10% at 4 hours).
== END 2021-10-20 08:42 | disposition home or self-care (01) ==
LOC: RAD 08:42
PROVIDERS: PCP Family Medicine; Visit Provider Internal Medicine Gastroenterology
DX: R10.9 Unspecified abdominal pain (principal)
CPT/HCPCS: 78264; A9541

== ENCOUNTER → 2021-11-14 14:33 | Outpatient (BNVA) | payer MEDICARE, OTHER, SELFPAY | PROVIDERS: PCP Family Medicine; Visit Provider Internal Medicine Cardiovascular Disease | DX: I48.91 Unspecified atrial fibrillation (principal); Z79.01 Long term (current) use of anticoagulants; I65.29 Occlusion and stenosis of unspecified carotid artery; I11.0 Hypertensive heart disease with heart failure; I50.32 Chronic diastolic (congestive) heart failure; E03.9 Hypothyroidism, unspecified; Z86.73 Personal history of transient ischemic attack (TIA), and cerebral infarction without residual deficits | CPT/HCPCS: 93005; 99214 ==

== ENCOUNTER 2021-12-21 13:31 | Outpatient (CLI) | payer MEDICARE, OTHER, SELFPAY ==
[2021-12-21 14:14] LABS: Anion Gap 13.3 (5-19); Blood Urea Nitrogen 12 mg/dL (8-23); Calcium 9.1 mg/dL (8.5-10.5); Carbon Dioxide 29 mmol/L (22-29); Chloride 100 mmol/L (98-107); Glucose 104 mg/dL (65-115); Osmolality Calculated 288 mOsm/kg (285-295); Potassium 3.3 mmol/L (3.5-5.1); Sodium 139 mmol/L (136-145)
== END 2021-12-21 13:32 | disposition home or self-care (01) ==
LOC: LAB 13:34
PROVIDERS: Internal Medicine Cardiovascular Disease; PCP Family Medicine; Visit Provider Internal Medicine
DX: I47.1 Supraventricular tachycardia (principal); I48.91 Unspecified atrial fibrillation; R55 Syncope and collapse
CPT/HCPCS: 36415; 80048

== ENCOUNTER → 2022-05-16 11:55 | Outpatient (BNVA) | payer MEDICARE, SELFPAY | PROVIDERS: PCP Family Medicine; Visit Provider Internal Medicine Cardiovascular Disease | DX: I48.91 Unspecified atrial fibrillation (principal); Z79.01 Long term (current) use of anticoagulants; I65.29 Occlusion and stenosis of unspecified carotid artery; K55.9 Vascular disorder of intestine, unspecified; I11.0 Hypertensive heart disease with heart failure; I50.32 Chronic diastolic (congestive) heart failure; D50.0 Iron deficiency anemia secondary to blood loss (chronic) | CPT/HCPCS: 36415; 80048; 83880; 85025; 99215 ==

== ENCOUNTER 2022-06-16 08:30 | Outpatient (CLI) | payer MEDICARE, SELFPAY ==
--- NOTE | 2022-06-16 08:39 | FL_ITS ---
WS: [id number] Modified barium swallow, 06/16/2022 Clinical Data: Other dysphagia Comparison: None. Fluoroscopy time: 1min [id number] # of spot films: Findings: The patient had difficulty in chewing and propelling the oral contents. There was premature spillage to the vallecula which did clear with multiple swallowing. There is minimal penetration but no aspira tion. The barium tablet moved normally from the oropharynx into the hypopharynx through the esophagus and into the stomach. FL/FL barium swallow modifd [id number] Impression: 1. Difficulty in mastication. 2. Premature spillage into the vallecula with minimal penetration but no aspira tion.
== END 2022-06-16 08:31 | disposition home or self-care (01) ==
LOC: RAD 08:32
PROVIDERS: PCP Family Medicine; Visit Provider Internal Medicine Gastroenterology
DX: R13.10 Dysphagia, unspecified (principal)
CPT/HCPCS: 74230; 92611

== ENCOUNTER → 2022-10-12 10:00 | Outpatient (BNVA) | payer MEDICARE, SELFPAY | PROVIDERS: PCP Family Medicine; Visit Provider Podiatrist Foot & Ankle Surgery | DX: L60.0 Ingrowing nail (principal); L60.3 Nail dystrophy | CPT/HCPCS: 11750; 99203 ==

== ENCOUNTER → 2022-11-09 09:51 | Outpatient (BNVA) | payer MEDICARE, SELFPAY | PROVIDERS: PCP Family Medicine; Visit Provider Podiatrist Foot & Ankle Surgery | DX: L60.3 Nail dystrophy (principal) | CPT/HCPCS: 99213 ==

== ENCOUNTER → 2023-02-20 14:07 | Outpatient (BNVA) | payer MEDICARE, SELFPAY | PROVIDERS: PCP Family Medicine; Visit Provider Internal Medicine Cardiovascular Disease | DX: I48.91 Unspecified atrial fibrillation (principal); K55.1 Chronic vascular disorders of intestine; I11.0 Hypertensive heart disease with heart failure; I50.32 Chronic diastolic (congestive) heart failure; I65.22 Occlusion and stenosis of left carotid artery; E03.9 Hypothyroidism, unspecified | CPT/HCPCS: 99214 ==

== ENCOUNTER 2023-03-07 08:59 | Outpatient (CLI) | payer MEDICARE, SELFPAY ==
--- NOTE | 2023-03-07 09:04 | CT_ITS ---
WS: [id number] CT ANGIOGRAPHY abdomen and pelvis HISTORY: STENOSIS OF CELIAC ARTERY/CHRONIC MESENTERIC ISCHEMIA TECHNIQUE: CT angiogram is performed during IV injection. Reformation images reviewed. All CT scans a [facility] use at least one of these dose optimization techniques: automated exposure contro l; mA and/or kV adjustment per patient size (includes targeted exams where dose is matched to clinica l indication); or iterative reconstruction. CONTRAST: Omnipaque 350; 100 mL IV. DLP: 317.35 mGy.cm COMPARISON: 06/15/2019 Noncalcified pulmonary nodules at the lung bases with minimal change since 06/15/2019. Mild LEFT heart enlargement. Abdominal aorta: Marked atherosclerotic changes within the abdominal aorta. Dense calcified plaque wi th mild intimal thickening. There is no aneurysm. Bifurcation is intact with heavy calcification cont inuing into the iliac arteries. Internal and external iliac arteries are patent. Femoral arteries are patent with normal bifurcation. Extremely high-grade stenosis with near occlusion involving the proximal celiac axis. Beyond 2 cm the re is flow identified within the celiac axis. There is dense calcification in the SMA. A short stent is noted in the mid to distal SMA. There is dense heavily calcified plaque within the RAMO although it does appear to be patent. Normal liver. Prior cholecystectomy. No adrenal mass. Mild diffuse pancreatic atrophy. No pancreatic duct or common bile duct dilatation. Abnormal configuration of the spleen. Along the lateral spleen there is a 2.6 x 2.7 cm low-attenuatio n mass which may be a resolving subcapsular hematoma. This was not present on 06/15/2019. No GI tract obstruction. No ischemic changes are noted within the GI tract. Prior appendectomy. No as cites or free air. Well distended urinary bladder with mild asymmetric wall thickening. There is wall thickening along t he LEFT lateral urinary bladder which was not present on the prior study. Maximum diameter of 8.8 mm. L5 anterolisthesis by 6 mm. Dorsal column stimulator electrodes over the mid thoracic spine with manish danitza pack over the posterior RIGHT spine. IMPRESSION: 1. Extremely high-grade stenosis proximal celiac axis. There is contrast beyond the stenosis suggest ing this is not completely occluded. 2. Extensive atherosclerotic plaque in the SMA with the mid to distal stent which is patent. 3. Severe atherosclerosis RAMO. 4. No aortic aneurysm. 5. No ischemic changes within the GI tract. 6. Prior cholecystectomy. 7. New asymmetric wall thickening of the LEFT lower urinary bladder. Consider visualization by cysto scopy to exclude neoplasm. Wall thickening measures up to 8.8 mm. 8. Small fluid collection along the lateral spleen measures 2.6 x 2.7 cm. This may be from a prior s ubcapsular hematoma. This has not been present on prior studies. Uncertain etiology and significance.
[2023-03-07 10:10] LABS: Blood Urea Nitrogen 21 mg/dL (8-23)
[2023-03-07] MEDS: iohexol 350 mg/mL 500 mL Btl (per mL) IV (10:22)
== END 2023-03-07 09:00 | disposition home or self-care (01) ==
LOC: RAD 09:00
PROVIDERS: Radiology Neuroradiology; PCP Family Medicine; Visit Provider Internal Medicine Gastroenterology
DX: I77.1 Stricture of artery (principal); K55.1 Chronic vascular disorders of intestine; N32.9 Bladder disorder, unspecified; R93.5 Abnormal findings on diagnostic imaging of other abdominal regions, including retroperitoneum
CPT/HCPCS: 74174; 82565; 84520; Q9967

== ENCOUNTER → 2023-09-03 13:39 | Outpatient (BNVA) | payer MEDICARE, SELFPAY | PROVIDERS: PCP Family Medicine; Visit Provider Internal Medicine Cardiovascular Disease | DX: I48.91 Unspecified atrial fibrillation (principal); I11.0 Hypertensive heart disease with heart failure; I50.32 Chronic diastolic (congestive) heart failure; I65.22 Occlusion and stenosis of left carotid artery; K55.9 Vascular disorder of intestine, unspecified; I47.19 Other supraventricular tachycardia | CPT/HCPCS: 99214 ==

== ENCOUNTER 2024-01-11 12:23 | Emergency (ER) | payer MEDICARE, SELFPAY ==
--- NOTE | 2024-01-11 12:25 | USCV_ITS ---
Carleen Garcia Age: 78 Gender: F : 1945 Exam Date: 01/11/2024 12:40 Ordering Phys: Jacey Ortiz MD Technologist: [facility] [place] [facility] [place]: [place] HISTORY: Pain. Recent cardiac stent placement in [place]. Pt had a rt groin hematoma post op that. PROCEDURES: Venous duplex imaging was performed in only the right lower extremity. The following venous structures were evaluated: common femoral vein, profunda vein, proximal portion of the greater saphenous vein, superficial femoral vein, and the popliteal vein. In addition, the posterior tibial and peroneal trunk were evaluated. Serial compression, augmentation maneuvers, and spectral Doppler flow evaluation were performed. FINDINGS: No evidence of DVT seen in any vessel visualized at this time. Hematoma appears to be resolving in Rt groin CONCLUSIONS No evidence of right lower extremity DVT. Resolving hematoma Right groin George Guajardo MD (Electronically Signed) Final Date: 11 January 2024 15:01 S
--- NOTE | 2024-01-11 13:30 | PC.NURSE ---
DELAY FOR TRIAGE DUE TO ULTRASOUND TAKING PATIENT PRIOR TO THIS NURSE BEING ABLE TO TRIAGE PATIENT.
[2024-01-11 13:57] VITALS: BP 120/76; PULSE 67; RESP 17; TEMP 36.7; O2SAT 97; BMI 24.6
[2024-01-11 15:36] LABS: Basophils % 0.1 %; Eosinophils # 0.1 10^3/uL (0.0-0.8); Eosinophils % 0.8 %; Hematocrit 25.4 % (36-47); Lymphocytes % 6.6 %; Mean Corpuscular HGB Conc 30.3 g/dL (30-55); Mean Corpuscular Hemoglobin 29.2 pg (27-33); Mean Corpuscular Volume 96.2 fl (85-98); Mean Platelet Volume 11.2 fL (7.4-10.4); Monocytes # 1.2 10^3/uL (0.2-0.9); Monocytes % 8.5 %; Neutrophils # 11.84 10^3/uL (1.8-7.7); Neutrophils % 82.7 %; Nucleated Red Blood Cells % 0 %; Platelet Count 269 10^3/cmm (157-399); Red Blood Count 2.64 10^6/uL (3.85-5.65); Red Cell Distribution Width 17.4 % (12.1-15.1); White Blood Count 14.31 10^3/uL (3.29-11.43)
--- NOTE | 2024-01-11 16:02 | ED_ITS ---
HPI - Extremity Problem 2 General: Chief complaint: Extremity Problem,Nontraumatic Stated complaint: R. leg swollen, painful, knots on top [facility] Time Seen by Provider: 01/11/24 15:43 Source: patient and family Mode of arrival: ambulatory Limitations: no limitations History of Present Illness: Patient is a 78-year-old female who presents to ED today with presumedly her daughter for evaluation of swelling to her right lower extremity and bruising. Patient recently was admitted to [facility] where she was underwent percutaneous intervention/cardiac stenting. She subsequently developed a right femoral artery pseudoaneurysm that was treated with ultrasound-guided thrombin injection. She had an acute drop of her hemoglobin and required blood transfusions. Daughter states at time of discharge her hemoglobin was 7.7. This was approximately a week ago. She does have these results on the patient's portal on her phone and these were reviewed. Patient has noticed swelling to her right leg and ecchymosis spreading down. She feels like groin pain is at baseline and does not seem to be enlarging. MD Complaint: extremity pain and extremity swelling Onset (ago): day(s) Pain Consistency: constant Location: right and lower extremity Radiation: none Relieving factors: nothing Exacerbating factors: nothing Associated symptoms: Reports no associated symptoms; Deny chest pain or fever(s) Context: recent surgery/procedure Related Data Home Medications Medication Instructions Recorded Confirmed methotrexate (PF) 25 mg Submucosal Inj PER PKG DIR 04/16/19 09/03/23 ondansetron HCl 4 mg tablet 4 mg PO Q6H PRN Nausea 04/16/19 09/03/23 (Zofran) ascorbic acid (vitamin C) 250 mg 250 mg PO DAILY 06/15/19 09/03/23 tablet (Vitamin C) calcitriol 0.25 mcg capsule 0.25 mcg PO DAILY 06/15/19 09/03/23 cyanocobalamin (vitamin B-12) 2,500 mcg sublingual DAILY 06/15/19 09/03/23 2,500 mcg sublingual tablet (Vitamin B-12) pramipexole 0.5 mg tablet See Rx Instructions .Route .COMPLEX 06/15/19 09/03/23 trazodone 50 mg tablet 50 mg PO BEDTIME 06/15/19 09/03/23 folic acid 1 mg tablet 1 mg PO DAILY 06/24/19 09/03/23 prednisone 5 mg tablet 5 mg PO DAILY 06/24/19 09/03/23 gabapentin 300 mg capsule 300 mg PO BID 11/14/21 09/03/23 alprazolam 0.5 mg tablet 0.5 mg PO BID PRN 05/16/22 09/03/23 clopidogrel 75 mg tablet (Plavix) 75 mg PO DAILY 05/16/22 09/03/23 isosorbide mononitrate 60 mg 30 mg PO DAILY 05/16/22 09/03/23 tablet,extended release 24 hr pantoprazole 40 mg tablet,delayed 40 mg PO BID 05/16/22 09/03/23 release prochlorperazine maleate 10 mg 10 mg PO BID PRN 05/16/22 09/03/23 tablet (Compazine) tizanidine 4 mg capsule 4 mg PO ONCE PRN 05/16/22 09/03/23 levothyroxine 112 mcg tablet 125 mcg PO DAILY 02/20/23 09/03/23 (Synthroid) potassium chloride 20 mEq 20 meq PO DAILY 02/20/23 09/03/23 tablet,extended release diclofenac sodium 75 mg 75 mg PO BID 09/03/23 09/03/23 tablet,delayed release furosemide 20 mg tablet 40 mg PO QAM PRN 09/03/23 09/03/23 levocetirizine 5 mg tablet 5 mg PO DAILY 09/03/23 09/03/23 Allergies Allergy/AdvReac Type Severity Reaction Status Date / Time adhesive tape Allergy Unknown Verified 09/03/23 14:07 fluticasone [From Flonase] Allergy Unknown Verified 09/03/23 14:07 Tetanus Vaccines and Toxoid Allergy ALGY-Hives Verified 09/03/23 14:07 morphine AdvReac Mild Unknown Verified 09/03/23 14:07 Review of Systems 2 Const: Denies: fever(s), chills, body aches, fatigue or malaise Card: Denies: chest pain Resp: Denies: dyspnea Musc: Reports: extremity pain and extremity swelling; Denies: neck pain, back pain, joint pain or joint swelling Skin/Breast: Reports: other (ecchymosis R LE) Neuro: Denies: numbness in extremities, weakness in extremities, sensory changes or difficulty walking PFS ED 2 PFSH: Medical History Osteoporosis Spinal cord stimulator dysfunction TIA (transient ischemic attack) Osteoarthritis Fibromyalgia Hyponatremia Rheumatoid arthritis Congestive heart failure GERD (gastroesophageal reflux disease) Hypothyroidism Hypertension Surgical History History of cataract extraction with lens replacement Status post insertion of spinal cord stimulator History of cholecystectomy History of bilateral oophorectomy History of thyroidectomy H/O cardiac catheterization Hx of appendectomy History of bilateral knee arthroplasty S/P rotator cuff repair History of bladder surgery H/O hand surgery History of carpal tunnel release Social History Smoking and tobacco/nicotine status: never used tobacco/nicotine Physical Exam 2 Const: COMMON NORMALS: no acute distress, patient oriented x3, no limitations, alert and well nourished GENERAL APPEARANCE: cooperative NUTRITIONAL APPEARANCE: thin ORIENTATION/CONSCIOUSNESS: Yes awake, Yes oriented to person, Yes oriented to place and Yes oriented to time Resp: COMMON NORMALS: normal respiratory effort and clear to auscultation bilaterally AUSCULTATION: clear to auscultation bilaterally Cardio: COMMON NORMALS: regular rate and regular rhythm RATE: regular rate RHYTHM: regular rhythm Extremity: COMMON NORMALS: full ROM, capillary refill normal and no calf tenderness GENERAL: Yes normal exam except as noted OTHER: pt has edema to R LE and old appearing ecchymosis that most likely generated from her groin; she has easily palpable DP/PT pulses with normal sensation. No calf pain/negative Meg's; she does have edema and tenderness to palpation involving her right groin Neuro: COMMON NORMALS: patient oriented x3, moves all extremities, no focal motor deficits, no sensory deficits noted and gait normal S ENSORIUM/ORIENTATION: Yes alert, Yes oriented to person, Yes oriented to place and Yes oriented to time Skin: NARRATIVE SKIN EXAM: see above Course 2 Vital Signs: Vital signs: Vital Signs Temperature 98.0 F 01/11/24 13:57 Pulse Rate 67 01/11/24 13:57 Respiratory Rate 17 01/11/24 13:57 Blood Pressure 120/76 01/11/24 13:57 Pulse Oximetry 97 01/11/24 13:57 Oxygen Delivery Me thod Room Air 01/11/24 13:57 MDM - Extremity (Nontraumatic) Medical Decision Making Hemoglobin today is the same as it was at her discharge from [facility] almost a week ago which is reassuring. Her ultrasound showing no V DVT to the right lower extremity. She does have a resolving hematoma to the right groin. No evidence of pseudoaneurysm. Patient will be allowed discharge. Medical Records I reviewed the patient's medical records. Lab Data I reviewed the patient's lab results. 01/11/24 15:30 Laboratory Results WBC 14.31 10^3/uL (3.29-11.43) H 01/11/24 15:30 RBC 2.64 10^6/uL (3.85-5.65) L 01/11/24 15:30 Hgb 7.70 g/dL (11.27-16.99) L 01/11/24 15:30 Hct 25.4 % (36-47) L 01/11/24 15:30 MCV 96.2 fl (85-98) 01/11/24 15:30 MCH 29.2 pg (27-33) 01/11/24 15:30 MCHC 30.3 g/dL (30-55) 01/11/24 15:30 RDW 17.4 % (12.1-15.1) H 01/11/24 15:30 Plt Count 269 10^3/cmm (157-399) 01/11/24 15:30 MPV 11.2 fL (7.4-10.4) H 01/11/24 15:30 Neut % (Auto) 82.7 % 01/11/24 15:30 Lymph % (Auto) 6.6 % 01/11/24 15:30 [place] % (Auto) 8.5 % 01/11/24 15:30 Eos % (Auto) 0.8 % 01/11/24 15:30 Baso % (Auto) 0.1 % 01/11/24 15:30 Neut # (Auto) 11.84 10^3/uL (1.8-7.7) H 01/11/24 15:30 Lymph # (Auto) 1.0 10^3/uL (0.8-4.8) 01/11/24 15:30 [place] # (Auto) 1.2 10^3/uL (0.2-0.9) H 01/11/24 15:30 Eos # (Auto) 0.1 10^3/uL (0.0-0.8) 01/11/24 15:30 Baso # (Auto) 0.0 10^3/uL (0.0-0.1) 01/11/24 15:30 Nucleated RBC % (auto) 0 % 01/11/24 15:30 Nucleated RBCs # 0.0 /100WBC 01/11/24 15:30 All radiology interpretation(s) finalized by discharge Discharge Plan Discharge Patient Disposition: Home Clinical Impression: Groin hematoma Qualifiers: Encounter type: initial encounter Qualified Code(s): S30.1XXA - Contusion of abdominal wall, initial encounter Anemia Qualifiers: Anemia type: unspecified type Qualified Code(s): D64.9 - Anemia, unspecified Condition: Stable Prescriptions: No Action folic acid 1 mg tablet 1 mg PO DAILY prednisone 5 mg tablet 5 mg PO DAILY gabapentin 300 mg capsule 300 mg PO BID furosemide 20 mg tablet 40 mg PO QAM PRN diclofenac sodium 75 mg tablet,delayed release (DR/EC) 75 mg PO BID levocetirizine 5 mg tablet 5 mg PO DAILY isosorbide mononitrate 60 mg tablet extended release 24 hr 30 mg PO DAILY pantoprazole 40 mg tablet,delayed release (DR/EC) 40 mg PO BID prochlorperazine maleate [Compazine] 10 mg tablet 10 mg PO BID PRN tizanidine 4 mg capsule 4 mg PO ONCE PRN clopidogrel [Plavix] 75 mg tablet 75 mg PO DAILY potassium chloride 20 mEq tablet extended release 20 meq PO DAILY ondansetron HCl [Zofran] 4 mg Tablet 4 mg PO Q6H PRN (Reason: Nausea) methotrexate (PF) 25 mg/0.5 ml 25 mg Submucosal Inj PER PKG DIR Vitamin B-12 2,500 mcg Tablet, Sublingual 2,500 mcg SUBLINGUAL DAILY trazodone 50 mg tablet 50 mg PO BEDTIME pramipexole 0.5 mg tablet See Rx Instructions .ROUTE .COMPLEX Rx Instructions: 0.5 mg orally TAKE 1 AND 1/2 PO AT BEDTIME. Vitamin C 250 mg Tablet 250 mg PO DAILY calcitriol 0.25 mcg capsule 0.25 mcg PO DAILY alprazolam 0.5 mg tablet 0.5 mg PO BID PRN levothyroxine [Synthroid] 112 mcg tablet 125 mcg PO DAILY Discharge Orders: Discharge ED (Routine); Ordered 01/11/24 Ordered By: Brandy Lopez Referrals: Nae Guerin MD [Primary Care Provider] - Activity Restrictions/Additional Instructions: As we discussed, her ultrasound did not show blood clot to her leg. It appeared she had a resolving hematoma to her right groin. Her hemoglobin today was 7.7 which is the same as several days ago when she was discharged from [facility]. Continue to follow-up at your currently scheduled appointments. She may return to the emergency department at anytime for any further complaints she may have. Coding Level of Care Code ED Chisel Trimmer for Hubert Ceja
[2024-01-11 16:35] VITALS: BP 136/81; PULSE 61; O2SAT 96
== END 2024-01-11 16:42 | disposition home or self-care (01) ==
PROVIDERS: Emergency Medicine; Emergency Provider Physician Assistant; PCP Family Medicine
DX: S30.1XXA Contusion of abdominal wall, initial encounter (principal); D64.9 Anemia, unspecified; Z79.02 Long term (current) use of antithrombotics/antiplatelets; Z86.73 Personal history of transient ischemic attack (TIA), and cerebral infarction without residual deficits; I11.0 Hypertensive heart disease with heart failure; I50.9 Heart failure, unspecified; X58.XXXA Exposure to other specified factors, initial encounter
CPT/HCPCS: 85025; 93971; 99284

== ENCOUNTER → 2024-01-23 10:13 | Outpatient (BNVA) | payer MEDICARE, SELFPAY | PROVIDERS: PCP Family Medicine; Visit Provider Internal Medicine Cardiovascular Disease | DX: I25.10 Atherosclerotic heart disease of native coronary artery without angina pectoris (principal); K55.1 Chronic vascular disorders of intestine; R31.9 Hematuria, unspecified; E78.5 Hyperlipidemia, unspecified; I11.0 Hypertensive heart disease with heart failure; I50.9 Heart failure, unspecified | CPT/HCPCS: 99214 ==